=== PATIENT | female | born 2000 | race Caucasian/White ===

== ENCOUNTER 2023-04-14 08:20 | Inpatient (IN) | payer OTHER, SELFPAY ==
--- NOTE | 2023-04-14 | ECG_ITS ---
Test Reason : CLEARANCE Blood Pressure : / mmHG Vent. Rate : 069 BPM Atrial Rate : 069 BPM P-R Int : 140 ms QRS Dur : 076 ms QT Int : 368 ms P-R-T Axes : 054 070 033 degrees QTc Int : 394 ms Normal sinus rhythm with sinus arrhythmia Normal ECG No previous ECGs available Referred By: Zach Cleaning Electronically Signed By:PATO BARNEY MD
[2023-04-14 08:24] VITALS: BP 118/80; PULSE 98; RESP 12; O2SAT 96; BMI 25.4
--- NOTE | 2023-04-14 08:30 | ED.PSYCH ---
HPI - Psych General Chief Complaint: Psychiatric Symptoms Stated Complaint: Mental health eval Time Seen by Provider: 04/14/23 08:30 Source: patient and RN notes reviewed Mode of arrival: ambulatory Limitations: no limitations History of Present Illness HPI Narrative: This is a 23-year-old female, with no known past medical history, presenting to the emergency department with complaints of suicidal ideations. Patient reports that over the last several years her mother has been battling cancer and recently several weeks ago. Patient states that she has had a difficult time with this transition. Patient reports suicidal ideations however does not have a suicidal plan. No auditory or visual hallucinations. Denies alcohol or drug use. She is currently staying with a friend and is safe in these facilities. She has been admitted psychiatrically, last urine medicated. Denies any fevers, chills, chest pain, shortness of breath, headaches, dizziness, nausea vomiting, or diarrhea. No other complaints or concerns at this time. MD complaint: suicidal ideation and feels depressed Onset (ago): week(s) Duration: constant History of same: Yes Relieving factors: none Exacerbating factors: none Context: significant life stressor Associated psychiatric symptoms: depression and suicidal ideation Associated symptoms: denies other symptoms Treatments prior to arrival: none Related Data Home Medications Medication Instructions Recorded Confirmed cariprazine 3 mg capsule (Vraylar) 3 mg PO DAILY 04/14/23 04/14/23 metformin 500 mg PO DAILY 04/14/23 04/14/23 quetiapine 100 mg PO BEDTIME 04/14/23 04/14/23 Allergies Allergy/AdvReac Type Severity Reaction Status Date / Time No Known Allergies Allergy Verified 04/14/23 08:47 Review of Systems Review of Systems: Constitutional: No Weight loss, No Fever, No Chills, No Night Sweats, No Fatigue, No Malaise ENT/Mouth: No Hearing loss, No Ear Pain, No Nasal Congestion, No Sinus Pain, No Hoarseness, No sore throat, No Rhinorrhea, No Swallowing Difficulty Eyes: No Eye Pain, No Swelling, No Redness, No Foreign Body, No Discharge, No Vision Changes Cardiovascular: No Chest Pain, No SOB, No Dyspnea on Exertion, No Orthopnea, No Edema, No Palpitations Respiratory: No Cough, No Sputum, No Wheezing, No Smoke Exposure, No Dyspnea Gastrointestinal: No Nausea, No Vomiting, No Diarrhea, No Constipation, No Abdominal pain, No Hematochezia, No Melena Genitourinary: No irregular bleeding, No Dysuria, No Urinary Frequency, No Hematuria, No Urinary Incontinence/retention, No Urgency, No Flank Pain, No Urinary Flow Changes, No Hesitancy Musculoskeletal: No joint pain, No Myalgias, No Joint Swelling Skin: No Skin Lesions, No rash Neuro: No Weakness, No Numbness, No Paresthesias, No Loss of Consciousness, No Dizziness, No Headache Psych: No Anxiety/Panic, No Depression, +SI, No HI/AH/VH, No Social Issues, Heme/Lymph: No Bruising, No Bleeding,No Lymphadenopathy Endocrine: No Polyuria, No Polydipsia, No Temperature Intolerance Yes all other systems are reviewed and are negative Constitutional: Constitutional: Reports as per [facility] Social History Social History Alcohol intake: never Smoked in Last 30 Days: No Use of substances other than those prescribed or required for medical reasons: No Advance Directives: No Advance Directives Information Provided: Yes Guardian: No Physical Exam Vital Signs: Vital Signs: Last Vital Signs Temp 97.4 F 04/15/23 06:19 Pulse 69 04/15/23 06:19 Resp 15 04/15/23 06:19 BP 106/65 04/15/23 06:19 Pulse Ox 98 04/15/23 06:19 O2 Del Method Room Air 04/15/23 06:19 BMI result Body Mass Index 25.4 Const: General: cooperative, comfortable and no acute distress Orientation/consciousness: patient oriented x3 Limitations: no limitations HEENT: Head: Yes normal to inspection, Yes normocephalic and Yes atraumatic Ears: hearing grossly normal bilaterally General nose exam: Normal external nose present Face and sinus: Yes normal facial exam Mouth: Normal oral and palatal mucosa present, oropharynx normal and moist mucous membranes Throat: Yes posterior oropharynx normal Eyes: General: appearance normal, both eyes and all related structures Eyelids: Yes eyelids normal Conjunctivae: conjunctivae normal Sclerae: sclerae normal Pupils: Equal, round and reactive pupils present EOM: EOMs intact bilaterally Neck: Neck: Yes normal visual inspection, Yes full ROM and Yes no lymphadenopathy Lymphatic: no lymphadenopathy noted Chest: Chest palpation & inspection: normal inspection of the chest Resp: Effort & Inspection: normal respiratory effort and able to speak in complete sentences Auscultation: clear to auscultation bilaterally, no crackles, no rales, no rhonchi and no wheezes Cardio: Rate: regular rate Rhythm: regular rhythm Heart sounds: S1 normal heart sound present and S2 normal heart sound present GI: Inspection: Yes normal to inspection Palpation (GI): Soft to palpation, nontender and no guarding Skin: General skin exam: no rashes or lesions noted Trauma: no lacerations or abrasions Wounds: no wounds Neuro: General: patient oriented x3 and moves all extremities Cranial nerves: Yes Equal, round and reactive pupils present Extrem: General: Yes normal to inspection Right upper extremity: normal to inspection Left upper extremity: normal to inspection Right lower extremity: normal to inspection Left lower extremity: normal to inspection Course Reevaluation(s) Reevaluation #1: Labs reviewed, no leukocytosis H&H is stable, urine specific gravity elevated likely due to mild dehydration, kidney function within normal limits, patient tested positive for opiates, no other drugs. Patient is COVID negative. Patient cleared medically, pending care team consult and dispo. Time: 14:40 Reevaluation #2: Physician observation initiated. Time: 15:45 Reevaluation #3: Patient will be admitted psychiatrically. Time: 15:56 Additional Reevaluation(s): 0655: Physician observation continued The patient has been accepted to the psychiatric service however there is incidents issue and the patient had to remain in the emergency department Behavioral Health Unit. No reported incidents on the patient overnight. Patient will be kept in the emergency department Behavioral Health Unit until appropriate disposition can be determined. 0900: End physician observation Patient has been accepted on to the [facility] psychiatric service. Medications Administered Discontinued Medications Generic Name Dose Route Start Last Admin Trade Name Hunterq PRN Reason Stop Dose Admin Cariprazine 3 mg 04/15/23 09:00 04/15/23 08:49 Cariprazine Hcl 3 Mg Capsule PO Not Given DAILY CHALO Metformin HCl 500 mg 04/15/23 09:00 04/15/23 08:49 Metformin Hcl 500 Mg Tablet PO Not Given DAILY CHALO Quetiapine Fumarate 100 mg 04/14/23 21:00 04/14/23 21:32 Quetiapine Fumarate 100 Mg Tablet PO 100 mg BEDTIME CHALO Administration Medical Decision Making Medical Decision Making MDM Narrative: 23-year-old female presenting to the emergency department for evaluation of suicidal ideations. Recent significant stressor of her mom from cancer. Patient has no suicidal plan. Denies alcohol or drug use. Patient in Behavioral Health pot. Vital signs stable. No Physical aliments. Plan: Labs, UA, COVID, urine drug screen Differential Diagnosis Differential Diagnoses: The differential diagnosis associated with the presentation includes Suicidal ideation, depression, anxiety, substance abuse Admission/Observation Consideration of admission/observation: Escalation of care including admission/observation considered Lab Data MDM Lab Attestation statement: I reviewed the patient's lab results. 04/14/23 09:26 04/14/23 09:26 Labs: Lab Results 04/14/23 04/14/23 04/14/23 Range/Units 08:48 08:48 08:48 WBC (4.8-10.8) X10*3/uL RBC (4.20-5.50) X10*6/uL Hgb (12.0-16.0) g/dl Hct (37.0-47.0) % MCV (80.0-98.0) fL MCH (27.0-33.0) pg MCHC (31.0-35.0) g/dl RDW (11.0-16.0) % Plt Count (160-400) X10*3/uL MPV (9.4-12.3) fL Immature Gran % (Auto) (0.0-0.4) % Neut % (Auto) (45-73) % Lymph % (Auto) (20-40) % [place] % (Auto) (2-11) % Eos % (Auto) (0-4) % Baso % (Auto) (0-2) % Lymph # (Auto) (1.2-4.9) X10*3/uL [place] # (Auto) (0.1-1.2) X10*3/uL Eos # (Auto) (0.0-0.4) X10*3/uL Baso # (Auto) (0.0-0.2) X10*3/uL Abs Immat Gran (auto) (0.00-0.03) X10*3/uL Absolute Neuts (auto) (2.0-8.3) x10*3/uL Absolute Nucleated RBC (0.0-0.012) X10*3/uL Nucleated RBC % (auto) (0.0-0.2) /100WBC Sodium (135-145) mmol/L Potassium (3.3-5.1) mmol/L Chloride (96-108) mmol/L Carbon Dioxide (22-29) mmol/L Anion Gap (12-20) BUN (9-16) mg/dL Creatinine (0.5-1.4) mg/dL Estim Creat Clear Calc Estimated GFR Random Glucose (60-115) mg/dL Calcium (8.4-10.2) mg/dL Urine Color Dark Yellow Urine Appearance Clear Urine pH 5.5 (5.0-9.0) Ur Specific [place] >= 1.030 H (1.005-1.025) Urine Protein Trace (Neg-Trace) mg/dL Urine Glucose (UA) Negative (Negative) mg/dL Urine Ketones Trace (Negative) mg/dL Urine Blood Negative (Negative) Urine Nitrite Negative (Negative) Ur Leukocyte Esterase Negative (Negative) Urine Test NEGATIVE (NEGATIVE) Urine Opiates Screen (Not Detect) Urine Fentanyl Screen (Not Detect) Ur Barbiturates Screen (Not Detect) Ur Phencyclidine Scrn (Not Detect) Ur Amphetamines Screen (Not Detect) U Benzodiazepines Scrn (Not Detect) Urine Cocaine Screen (Not Detect) U Marijuana (THC) Screen (Not Detect) COVID-19 (KAYLEY) Negative (Negative) COVID-19 Clin Com See Note 04/14/23 04/14/23 04/14/23 Range/Units 08:48 09:26 09:26 WBC 5.7 (4.8-10.8) X10*3/uL RBC 5.11 (4.20-5.50) X10*6/uL Hgb 14.4 (12.0-16.0) g/dl Hct 45.5 (37.0-47.0) % MCV 89.0 (80.0-98.0) fL MCH 28.2 (27.0-33.0) pg MCHC 31.6 (31.0-35.0) g/dl RDW 11.8 (11.0-16.0) % Plt Count 305 (160-400) X10*3/uL MPV 8.8 L (9.4-12.3) fL Immature Gran % (Auto) 0.2 (0.0-0.4) % Neut % (Auto) 48.7 (45-73) % Lymph % (Auto) 38.0 (20-40) % [place] % (Auto) 9.8 (2-11) % Eos % (Auto) 2.8 (0-4) % Baso % (Auto) 0.5 (0-2) % Lymph # (Auto) 2.2 (1.2-4.9) X10*3/uL [place] # (Auto) 0.6 (0.1-1.2) X10*3/uL Eos # (Auto) 0.2 (0.0-0.4) X10*3/uL Baso # (Auto) 0.0 (0.0-0.2) X10*3/uL Abs Immat Gran (auto) 0.01 (0.00-0.03) X10*3/uL Absolute Neuts (auto) 2.8 (2.0-8.3) x10*3/uL Absolute Nucleated RBC 0.000 (0.0-0.012) X10*3/uL Nucleated RBC % (auto) 0.0 (0.0-0.2) /100WBC Sodium 142 (135-145) mmol/L Potassium 4.3 (3.3-5.1) mmol/L Chloride 106 (96-108) mmol/L Carbon Dioxide 27 (22-29) mmol/L Anion Gap 13 (12-20) BUN 12 (9-16) mg/dL Creatinine 0.81 (0.5-1.4) mg/dL Estim Creat Clear Calc 86.7 Estimated GFR > 60 Random Glucose 104 (60-115) mg/dL Calcium 10.0 (8.4-10.2) mg/dL Urine Color Urine Appearance Urine pH (5.0-9.0) Ur Specific [place] (1.005-1.025) Urine Protein (Neg-Trace) mg/dL Urine Glucose (UA) (Negative) mg/dL Urine Ketones (Negative) mg/dL Urine Blood (Negative) Urine Nitrite (Negative) Ur Leukocyte Esterase (Negative) Urine Test (NEGATIVE) Urine Opiates Screen POSITIVE H (Not Detect) Urine Fentanyl Screen Not Detected (Not Detect) Ur Barbiturates Screen Not Detected (Not Detect) Ur Phencyclidine Scrn Not Detected (Not Detect) Ur Amphetamines Screen Not Detected (Not Detect) U Benzodiazepines Scrn Not Detected (Not Detect) Urine Cocaine Screen Not Detected (Not Detect) U Marijuana (THC) Screen Not Detected (Not Detect) COVID-19 (K[facility]LEY) (Negative) COVID-19 [facility] 04/14/23 Range/Units 16:30 WBC (4.8-10.8) X10*3/uL RBC (4.20-5.50) X10*6/uL Hgb (12.0-16.0) g/dl Hct (37.0-47.0) % MCV (80.0-98.0) fL MCH (27.0-33.0) pg MCHC (31.0-35.0) g/dl RDW (11.0-16.0) % Plt Count (160-400) X10*3/uL MPV (9.4-12.3) fL Immature Gran % (Auto) (0.0-0.4) % Neut % (Auto) (45-73) % Lymph % (Auto) (20-40) % [place] % (Auto) (2-11) % Eos % (Auto) (0-4) % Baso % (Auto) (0-2) % Lymph # (Auto) (1.2-4.9) X10*3/uL [place] # (Auto) (0.1-1.2) X10*3/uL Eos # (Auto) (0.0-0.4) X10*3/uL Baso # (Auto) (0.0-0.2) X10*3/uL Abs Immat Gran (auto) (0.00-0.03) X10*3/uL Absolute Neuts (auto) (2.0-8.3) x10*3/uL Absolute Nucleated RBC (0.0-0.012) X10*3/uL Nucleated RBC % (auto) (0.0-0.2) /100WBC Sodium (135-145) mmol/L Potassium (3.3-5.1) mmol/L Chloride (96-108) mmol/L Carbon Dioxide (22-29) mmol/L Anion Gap (12-20) BUN (9-16) mg/dL Creatinine (0.5-1.4) mg/dL Estim Creat Clear Calc Estimated GFR Random Glucose (60-115) mg/dL Calcium (8.4-10.2) mg/dL Urine Color Urine Appearance Urine pH (5.0-9.0) Ur Specific [place] (1.005-1.025) Urine Protein (Neg-Trace) mg/dL Urine Glucose (UA) (Negative) mg/dL Urine Ketones (Negative) mg/dL Urine Blood (Negative) Urine Nitrite (Negative) Ur Leukocyte Esterase (Negative) Urine Test (NEGATIVE) Urine Opiates Screen Not Detected (Not Detect) Urine Fentanyl Screen Not Detected (Not Detect) Ur Barbiturates Screen Not Detected (Not Detect) Ur Phencyclidine Scrn Not Detected (Not Detect) Ur Amphetamines Screen Not Detected (Not Detect) U Benzodiazepines Scrn Not Detected (Not Detect) Urine Cocaine Screen Not Detected (Not Detect) U Marijuana (THC) Screen Not Detected (Not Detect) COVID-19 ([facility]LEY) (Negative) COVID-19 Clin Com Radiology Impression Discussion of test interpretation with radiology: I have reviewed the radiologist's reading. External Record Review External record reviewed: Inpatient record, Office record, Outpatient record, Prior outpatient labs, Prior outpatient radiology, Primary care record and Outside ED record Discharge Plan Discharge Patient Disposition: Admitted As Inpatient Prescriptions: No Action Vraylar 3 mg Capsule 3 mg PO DAILY metformin 500 mg PO DAILY quetiapine 100 mg PO BEDTIME Interventions: Velma-Suicide Risk Severity Scale Last Done: 04/15/23 06:17
[2023-04-14 09:46] LABS: Anion Gap 13 (12-20); Blood Urea Nitrogen 12 mg/dL (9-16); Carbon Dioxide 27 mmol/L (22-29); Chloride 106 mmol/L (96-108); Creatinine Clr Calc Pharmacy 86.7; Estimated Glomerular Filt Rate > 60; Glucose Random 104 mg/dL (60-115); Potassium 4.3 mmol/L (3.3-5.1); Sodium 142 mmol/L (135-145)
--- NOTE | 2023-04-14 18:08 | MHC.CARE ---
Call to patient?s listed insurance co., [employer] [phone] they are unable to accept clinical before determined if the service is a covered benefit. Call to [facility] [phone], closed for the day and automated service to check eligibility was not working. Patient registration attempted to check eligibility, this appears to be a dental plan.
[2023-04-14 20:58] VITALS: BP 117/77; PULSE 80; RESP 16; TEMP 36.6; O2SAT 99
[2023-04-14] MEDS: QUEtiapine Fumarate 100 MG TABLET PO (21:32)
[2023-04-15 06:19] VITALS: BP 106/65; PULSE 69; RESP 15; TEMP 36.3; O2SAT 98
--- NOTE | 2023-04-15 06:20 | PC.NURSE ---
Patient slept through the night, no distress observed/reported, behavior non concerning, mood depressed, affect congruent to mood, med rec completed/pending provider's approval, disposition per care team is section 12 inpatient bed search, patient was initially accepted to [facility] but later admission was put on hold due to insurance issue per care team, appetite poor, VSS, will continue to monitor.
--- NOTE | 2023-04-15 08:50 | PC.NURSE ---
This RN attempted to medicate PT with ordered 0900 meds; Pt stated that she no longer takes Metformin/Vraylar. Documented per MAR
[2023-04-15 09:20] VITALS: BP 109/77; PULSE 103; O2SAT 97
[2023-04-15] MEDS: hydrOXYzine HCL 25 MG TABLET PO (12:39)
--- NOTE | 2023-04-15 14:02 | PC.ADMIT ---
Jose is a 23-year-old female [place] [facility] [place] [facility] [place] a CV for treatment of unspecified depressive disorder and generalized anxiety disorder. Tox screen positive for opiates. Pt's mother recently after battling cancer and she's had a difficult time with this transition. Pt reports struggling with worsening suicidal ideation and difficulty functioning over the past few weeks. Pt presents as guarded and flat but is pleasant and cooperative. Pt reports having elevated anxiety and racing thoughts. Pt endorses vague SI but no plan, denies HI/AH/VH but will reach out to staff if thoughts occur.
--- NOTE | 2023-04-15 14:40 | P.HPPS_ITS ---
HPI Date of Service: 04/15/23 Chief Complaint: SI HPI Narrative: per CARE team patriciakeyona cross presented to [facility] [place] ED with friend, c/o SI and seeking admission. she reported that her mother had been ill with cancer for the past several years and about 3 weeks ago. since her mother's passing, she has been having daily SI; she struggles with chronic SI, but recently it has been more frequent and intense. she reports hopelessness, insomnia, anorexia with 4 lb weight loss, poor attention to ADLs. per collateral from pt's friend alon, pt has been struggling the past 6 years since her mother was diagnosed with cancer but has become increasingly depressed and suicidal since her mother's several weeks ago. on interview with psych MD on unit, pt's narrative is consistent with the information above. she reports mst of her med trials happened when she was in elementary school. she cannot recal the meds or doses, but it is her perception that meds have never been terribly helpful for her. she endorses insomnia, anergia, amotivation, hopelessness, rumination, poor concentration, PMR, and SI. she reports her energy level is normal. she reports as her target symptoms SI, anxiety, and rumination/depression, in that order. R/B of medications discussed, with focus on SSRI, and pt agrees to trial. MD contacted pharmacy where pt gets her meds in [place] and left message for her outpt med prescriber for collateral in understanding medication and diagnostic Hx. Past Psychiatric History: hosps: 1 prior, october of 2021 in [place], [place]; PHP after SA: denies SIB: denies outpt: therapy - weekly with same therapist for the past 3+ years prescriber - MARTINA molina [phone], for longer than with therapist reports h/o ADHD and depression diagnoses from childhood. describes most of her med trials as having happened when she was around 7 yo. per collateral from [place], [place], pt has been prescribed the following medications in the past 2 years: vraylar 3 mg daily, seroquel 100-150 mg QHS, hydroxyzine PRN anxiety, topiramate 50 BID (late 2020), and lithium (09/26). Medical Evaluation Reviewed: Yes [facility] Family History: brother - OCD/anxiety/depression sister - ODD Social History: single, never , no children. living with a friend of her family's presently, having moved out of her family home after the of her mother. she feels her father has made it abundantly clear he does not want anyone there with him, so she and her sister moved out. entering senior year in [employer] in [place], [place]. not employed. Substance History: pt denies the use of tobacco, alcohol, cannabis, or any other substances of abuse or recreational drugs. Trauma History: denies Diagnostics Vital Signs (24Hr): Vital Signs - 24 hr 04/14/23 20:58 04/15/23 06:19 Temperature 97.9 F 97.4 F Pulse Rate 80 69 Respiratory Rate 16 15 Blood Pressure 117/77 106/65 Pulse Oximetry 99 98 Oxygen Delivery Method Room Air Room Air BMI result Body Mass Index 25.4 Labs 04/14/23 09:26 04/14/23 09:26 Labs: Laboratory Results - last 48 hr 04/14/23 04/14/23 04/14/23 08:48 08:48 08:48 WBC RBC Hgb Hct MCV MCH MCHC RDW Plt Count MPV Immature Gran % (Auto) Neut % (Auto) Lymph % (Auto) [place] % (Auto) Eos % (Auto) Baso % (Auto) Lymph # (Auto) [place] # (Auto) Eos # (Auto) Baso # (Auto) Abs Immat Gran (auto) Absolute Neuts (auto) Absolute Nucleated RBC Nucleated RBC % (auto) Sodium Potassium Chloride Carbon Dioxide Anion Gap BUN Creatinine Estim Creat Clear Calc Estimated GFR Random Glucose Calcium Urine Color Dark Yellow Urine Appearance Clear Urine pH 5.5 Ur Specific [place] >= 1.030 H Urine Protein Trace Urine Glucose (UA) Negative Urine Ketones Trace Urine Blood Negative Urine Nitrite Negative Ur Leukocyte Esterase Negative Urine Test NEGATIVE Urine Opiates Screen Urine Fentanyl Screen Ur Barbiturates Screen Ur Phencyclidine Scrn Ur Amphetamines Screen U Benzodiazepines Scrn Urine Cocaine Screen U Marijuana (THC) Screen COVID-19 (KAYLEY) Negative COVID-19 Clin Com See Note 04/14/23 04/14/23 04/14/23 08:48 09:26 09:26 WBC 5.7 RBC 5.11 Hgb 14.4 Hct 45.5 MCV 89.0 MCH 28.2 MCHC 31.6 RDW 11.8 Plt Count 305 MPV 8.8 L Immature Gran % (Auto) 0.2 Neut % (Auto) 48.7 Lymph % (Auto) 38.0 [place] % (Auto) 9.8 Eos % (Auto) 2.8 Baso % (Auto) 0.5 Lymph # (Auto) 2.2 [place] # (Auto) 0.6 Eos # (Auto) 0.2 Baso # (Auto) 0.0 Abs Immat Gran (auto) 0.01 Absolute Neuts (auto) 2.8 Absolute Nucleated RBC 0.000 Nucleated RBC % (auto) 0.0 Sodium 142 Potassium 4.3 Chloride 106 Carbon Dioxide 27 Anion Gap 13 BUN 12 Creatinine 0.81 Estim Creat Clear Calc 86.7 Estimated GFR > 60 Random Glucose 104 Calcium 10.0 Urine Color Urine Appearance Urine pH Ur Specific [place] Urine Protein Urine Glucose (UA) Urine Ketones Urine Blood Urine Nitrite Ur Leukocyte Esterase Urine Test Urine Opiates Screen POSITIVE H Urine Fentanyl Screen Not Detected Ur Barbiturates Screen Not Detected Ur Phencyclidine Scrn Not Detected Ur Amphetamines Screen Not Detected U Benzodiazepines Scrn Not Detected Urine Cocaine Screen Not Detected U Marijuana (THC) Screen Not Detected COVID-19 ([facility]LEY) COVID-[employer] 04/14/23 16:30 WBC RBC Hgb Hct MCV MCH MCHC RDW Plt Count MPV Immature Gran % (Auto) Neut % (Auto) Lymph % (Auto) [place] % (Auto) Eos % (Auto) Baso % (Auto) Lymph # (Auto) [place] # (Auto) Eos # (Auto) Baso # (Auto) Abs Immat Gran (auto) Absolute Neuts (auto) Absolute Nucleated RBC Nucleated RBC % (auto) Sodium Potassium Chloride Carbon Dioxide Anion Gap BUN Creatinine Estim Creat Clear Calc Estimated GFR Random Glucose Calcium Urine Color Urine Appearance Urine pH Ur Specific [place] Urine Protein Urine Glucose (UA) Urine Ketones Urine Blood Urine Nitrite Ur Leukocyte Esterase Urine Test Urine Opiates Screen Not Detected Urine Fentanyl Screen Not Detected Ur Barbiturates Screen Not Detected Ur Phencyclidine Scrn Not Detected Ur Amphetamines Screen Not Detected U Benzodiazepines Scrn Not Detected Urine Cocaine Screen Not Detected U Marijuana (THC) Screen Not Detected COVID-19 ([facility]LEY) COVID-19 [facility] Meds/Allergies Meds Home Medications Medication Instructions Recorded Confirmed Type cariprazine 3 mg capsule (Vraylar) 3 mg PO DAILY 04/14/23 04/14/23 History metformin 500 mg PO DAILY 04/14/23 04/14/23 History quetiapine 100 mg PO BEDTIME 04/14/23 04/14/23 History Allergies Allergies Allergy/AdvReac Type Severity Reaction Status Date / Time No Known Allergies Allergy Verified 04/14/23 08:47 Mental Status Exam Mental Status Exam Narrative: calm, cooperative. somewhat disheveled, dressed in hospital attire. cooperative. speech nml amount, loudness. perhaps slightly slowed. latency often increased, as if pt were having some difficulty generating answers to questions. she offered that she is having trouble thinking. affect constricted, normo-intense, non-labile. mood anxious. SI comes and goes. denies HI/AVH. Assessment & Plan Assessment & Plan (1) Major depressive disorder, recurrent episode: Status: Acute Code(s): F33.9 - Major depressive disorder, recurrent, unspecified Plan collateral obtained from [facility], [place] re meds Hx over past 2 years. call placed to jesse MACK for meds Hx and collateral. start zoloft 50 mg for now for depression and anxiety. Patient educated on: diagnosis and medication risk/benefits Reason for continued inpatient stay Substantial Risk for: harm to self and inability to function Statement Statement: I have reviewed the history and physical and performed a pertinent examination on my patient. No changes have occurred unless specified. If the History and Physical was not performed prior to admission, the Hospitalist's service will be consulted for completing the admission physical. Time Spent With Patient Time: Total time managing care of this patient today __75__ minutes.
[2023-04-15 17:33] VITALS: BMI 24.3
[2023-04-15] MEDS: Acetaminophen 325 MG TABLET 650 MG PO (18:27)
[2023-04-15 21:00] VITALS: BP 107/69; PULSE 78; RESP 16; TEMP 36.4; O2SAT 100
[2023-04-15] MEDS: traZODone HCL 50 MG TABLET PO (21:26)
[2023-04-16 08:53] LABS: Estimated Average Glucose 88 mg/dL; Hemoglobin A1c % 4.7 %
[2023-04-16 09:03] LABS: Alanine Aminotransferase 21 U/L (0-31); Albumin Level 3.8 g/dL (3.5-5.0); Alkaline Phosphatase 59 U/L (39-117); Anion Gap 12 (12-20); Aspartate Amino Transferase 19 U/L (5-31); Bilirubin Total 0.3 mg/dL (0.0-1.0); Blood Urea Nitrogen 11 mg/dL (9-16); Calcium 9.7 mg/dL (8.4-10.2); Carbon Dioxide 25 mmol/L (22-29); Chloride 106 mmol/L (96-108); Cholesterol 201 mg/dL; Creatinine Clr Calc Pharmacy 86.1; Estimated Glomerular Filt Rate > 60; Glucose Fasting 95 mg/dL (60-99); HDL Cholesterol 51 mg/dL; LDL Cholesterol Calculated 130 mg/dl; Potassium 4.1 mmol/L (3.3-5.1); Sodium 139 mmol/L (135-145); Total Protein 6.2 g/dL (6.5-8.0); Triglycerides 103 mg/dL
[2023-04-16 09:18] LABS: Free T4 (Free Thyroxine) 1.29 ng/dL (0.71-1.85)
[2023-04-16 09:27] LABS: Vitamin B12 681 pg/mL (200-900)
[2023-04-16 10:00] VITALS: BP 125/75; PULSE 110; TEMP 36.6; O2SAT 97
[2023-04-16] MEDS: Sertraline HCL 50 MG TABLET PO (10:20)
--- NOTE | 2023-04-16 15:48 | HO.PSYCHPN ---
Subjective Subjective Date of Service: 04/16/23 Reason For Visit: SI Interim History: calm, cooperative. continues with mental slowing and apparent executive impairment. did not have seroquel Rx'ed last night, it was added back today for tonight. reports she had a hand tremor from the lithium and it did not help her in any case. per staff, attending groups. poor sleep overnight 2/2 snoring roommate. Mental Status Exam Mental Status Exam Narrative: calm, cooperative. somewhat disheveled, dressed in hospital attire. cooperative. speech nml amount, loudness. perhaps slightly slowed. latency often increased, as if pt were having some difficulty generating answers to questions. she offered that she is having trouble thinking. affect constricted, normo-intense, non-labile. mood no change. no SI/SIBI/HI/AVH expressed. Diagnostics Vital Signs (24Hr): Vital Signs - 24 hr 04/15/23 21:00 04/16/23 10:00 Temperature 97.6 F 97.8 F Pulse Rate 78 110 H Respiratory Rate 16 Blood Pressure 107/69 125/75 Pulse Oximetry 100 97 Oxygen Delivery Method Room Air Room Air BMI result Body Mass Index 24.3 Labs 04/14/23 09:26 04/16/23 08:34 Labs: Laboratory Results - last 48 hr 04/14/23 04/16/23 04/16/23 16:30 08:34 08:34 Sodium 139 Potassium 4.1 Chloride 106 Carbon Dioxide 25 Anion Gap 12 BUN 11 Creatinine 0.80 Estim Creat Clear Calc 86.1 Estimated GFR > 60 Fasting Glucose 95 Estimat Average Glucose 88 Hemoglobin A1c % 4.7 Calcium 9.7 Total Bilirubin 0.3 AST 19 ALT 21 Alkaline Phosphatase 59 Total Protein 6.2 L Albumin 3.8 Triglycerides 103 Cholesterol 201 LDL Cholesterol, Calc 130 HDL Cholesterol 51 Vitamin B12 Folate TSH 0.70 Free T4 1.29 Urine Opiates Screen Not Detected Urine Fentanyl Screen Not Detected Ur Barbiturates Screen Not Detected Ur Phencyclidine Scrn Not Detected Ur Amphetamines Screen Not Detected U Benzodiazepines Scrn Not Detected Urine Cocaine Screen Not Detected U Marijuana (THC) Screen Not Detected 04/16/23 08:34 Sodium Potassium Chloride Carbon Dioxide Anion Gap BUN Creatinine Estim Creat Clear Calc Estimated GFR Fasting Glucose Estimat Average Glucose Hemoglobin A1c % Calcium Total Bilirubin AST ALT Alkaline Phosphatase Total Protein Albumin Triglycerides Cholesterol LDL Cholesterol, Calc HDL Cholesterol Vitamin B12 681 Folate 7.0 TSH Free T4 Urine Opiates Screen Urine Fentanyl Screen Ur Barbiturates Screen Ur Phencyclidine Scrn Ur Amphetamines Screen U Benzodiazepines Scrn Urine Cocaine Screen U Marijuana (THC) Screen Medications Medications Current Medications Acetaminophen (Acetaminophen 325 Mg Tablet) 650 mg PO Q6H PRN PRN Reason: Headache/Pain Mild Scale (1-3) Last Admin: 04/15/23 18:27 Dose: 650 mg Al Hydroxide/Mg Hydroxide (Magnesium Hydrox/Alum Hydrox 30 Ml Oral.Susp) 30 ml PO Q6H PRN PRN Reason: Heartburn/Nausea Hydroxyzine HCl (Hydroxyzine Hcl 25 Mg Tablet) 25 mg PO Q6H PRN PRN Reason: Anxiety Last Admin: 04/15/23 12:39 Dose: 25 mg Magnesium Hydroxide (Milk Of Magnesia 30 Ml Oral.Susp) 30 ml PO DAILY PRN PRN Reason: Constipation Quetiapine Fumarate (Quetiapine Fumarate 100 Mg Tablet) 100 mg PO BEDTIME CHALO Quetiapine Fumarate (Quetiapine Fumarate 50 Mg Tablet) 50 mg PO BEDTIME PRN PRN Reason: Insomnia Sertraline HCl (Sertraline Hcl 50 Mg Tablet) 50 mg PO DAILY CHALO Last Admin: 04/16/23 10:20 Dose: 50 mg Allergies Allergies Allergy/AdvReac Type Severity Reaction Status Date / Time No Known Allergies Allergy Verified 04/14/23 08:47 Assessment & Plan Assessment & Plan (1) Major depressive disorder, recurrent episode: Status: Acute Code(s): F33.9 - Major depressive disorder, recurrent, unspecified Plan 04/15: collateral obtained from [place], [place] re meds Hx over past 2 years. call placed to jeses MACK for meds Hx and collateral. start zoloft 50 mg for now for depression and anxiety. 04/16: reinstate seroquel at [facility]. awaiting collateral from jesse. continue current mgmt. no change in presentation. Reason for continued inpatient stay Substantial Risk for: harm to self, inability to function and rapid decompensation Time Spent With Patient Time: Total time managing care of this patient today __25__ minutes.
[2023-04-16 19:52] VITALS: BP 128/71; PULSE 66; RESP 18; TEMP 36.3; O2SAT 98
[2023-04-16] MEDS: QUEtiapine Fumarate 100 MG TABLET PO (21:02)
[2023-04-16] MEDS: hydrOXYzine HCL 25 MG TABLET PO (21:10)
[2023-04-17 07:00] VITALS: BMI 24.4
[2023-04-17 09:00] VITALS: BP 112/75; PULSE 75; RESP 16; TEMP 36.7; O2SAT 16
[2023-04-17] MEDS: Sertraline HCL 50 MG TABLET PO (09:04)
--- NOTE | 2023-04-17 12:48 | P.PNPSI_ITS ---
Subjective Subjective Date of Service: 04/17/23 Reason For Visit: SI Interim History: pt reports racing thoughts making sleep difficult. racing thoughts present prior to admission and remain unchanged. not interested in PHP. passive SI - upon awakening, thinks, why am i still here? no plan or intent. educated re wellbutrin augmentation and DBT. per staff, poor sleep. vomited x 1 yesterday morning, which she attributed to anxiety. poor sleep 2/2 racing thoughts. tending to ADLs. taking meds and meals. denied SI/HI to staff. Mental Status Exam Mental Status Exam Narrative: calm, cooperative. adequately dressed and groomed, in street clothes. cooperative. speech nml amount, loudness. perhaps slightly slowed. latency slightly increased. affect constricted, normo-intense, non-labile. mood no change. passive SI. no SIBI/HI/AVH expressed. Diagnostics Vital Signs (24Hr): Vital Signs - 24 hr 04/16/23 19:52 04/17/23 09:00 Temperature 97.4 F 98.1 F Pulse Rate 66 75 Respiratory Rate 18 16 Blood Pressure 128/71 112/75 Pulse Oximetry 98 16 L Oxygen Delivery Method Room Air Room Air BMI result Body Mass Index 24.4 Labs 04/14/23 09:26 04/16/23 08:34 Labs: Laboratory Results - last 48 hr 04/16/23 04/16/23 04/16/23 08:34 08:34 08:34 Sodium 139 Potassium 4.1 Chloride 106 Carbon Dioxide 25 Anion Gap 12 BUN 11 Creatinine 0.80 Estim Creat Clear Calc 86.1 Estimated GFR > 60 Fasting Glucose 95 Estimat Average Glucose 88 Hemoglobin A1c % 4.7 Calcium 9.7 Total Bilirubin 0.3 AST 19 ALT 21 Alkaline Phosphatase 59 Total Protein 6.2 L Albumin 3.8 Triglycerides 103 Cholesterol 201 LDL Cholesterol, Calc 130 HDL Cholesterol 51 Vitamin B12 681 Folate 7.0 TSH 0.70 Free T4 1.29 Medications Medications Current Medications Acetaminophen (Acetaminophen 325 Mg Tablet) 650 mg PO Q6H PRN PRN Reason: Headache/Pain Mild Scale (1-3) Last Admin: 04/15/23 18:27 Dose: 650 mg Al Hydroxide/Mg Hydroxide (Magnesium Hydrox/Alum Hydrox 30 Ml Oral.Susp) 30 ml PO Q6H PRN PRN Reason: Heartburn/Nausea Hydroxyzine HCl (Hydroxyzine Hcl 25 Mg Tablet) 25 mg PO Q6H PRN PRN Reason: Anxiety Last Admin: 04/16/23 21:10 Dose: 25 mg Magnesium Hydroxide (Milk Of Magnesia 30 Ml Oral.Susp) 30 ml PO DAILY PRN PRN Reason: Constipation Quetiapine Fumarate (Quetiapine Fumarate 100 Mg Tablet) 100 mg PO BEDTIME CHALO Last Admin: 04/16/23 21:02 Dose: 100 mg Quetiapine Fumarate (Quetiapine Fumarate 50 Mg Tablet) 50 mg PO BEDTIME PRN PRN Reason: Insomnia Sertraline HCl (Sertraline Hcl 50 Mg Tablet) 50 mg PO DAILY CHALO Last Admin: 04/17/23 09:04 Dose: 50 mg Allergies Allergies Allergy/AdvReac Type Severity Reaction Status Date / Time No Known Allergies Allergy Verified 04/14/23 08:47 Assessment & Plan Assessment & Plan (1) Major depressive disorder, recurrent episode: Status: Acute Code(s): F33.9 - Major depressive disorder, recurrent, unspecified Plan 04/15: collateral obtained from [place], [place] re meds Hx over past 2 years. call placed to jesse MACK for meds Hx and collateral. start zoloft 50 mg for now for depression and anxiety. 04/16: reinstate seroquel at [facility]. awaiting collateral from jesse. continue current mgmt. no change in presentation. 04/17: collateral collected from outpt prescriber jesse. he denies bipolar diagnosis, reports pt identifies as BPD. jesse also reports hypothyroidism and hypercortisolism. believes she has done well on vraylar 1.5-3 mg daily over the past year or two. pt to consider wellbutrin for augmentation. will also discuss outpt prescriber's support for continued vraylar with pt tomorrow. Reason for continued inpatient stay Substantial Risk for: harm to self, inability to function and rapid decompensation Time Spent With Patient Time: Total time managing care of this patient today __35__ minutes.
[2023-04-17 20:25] VITALS: BP 117/78; PULSE 78; RESP 16; TEMP 36.6; O2SAT 98
[2023-04-17] MEDS: hydrOXYzine HCL 25 MG TABLET PO (20:35)
[2023-04-17] MEDS: QUEtiapine Fumarate 100 MG TABLET PO (20:35)
[2023-04-18 06:00] VITALS: BP 110/68; PULSE 94; RESP 16; TEMP 36.6; O2SAT 98
[2023-04-18] MEDS: Sertraline HCL 50 MG TABLET PO (10:14)
--- NOTE | 2023-04-18 11:33 | HO.PSYCHPN ---
Subjective Subjective Date of Service: 04/18/23 Reason For Visit: SI Interim History: review conversation MD had with outpt prescriber Jesse yesterday afternoon. discuss 3 options of wellbutrin, no changes, or vraylar. agree restarting vraylar might be best option, restart today. states her mood and thoughts have not changed since admission. did sleep better last night since room move. Mental Status Exam Mental Status Exam Narrative: calm, cooperative. adequately dressed and groomed, in street clothes. cooperative. speech nml amount, decr loudness. perhaps slightly slowed. latency slightly increased. affect constricted, normo-intense, non-labile. mood no change. passive SI. no SIBI/HI/AVH expressed. Diagnostics Vital Signs (24Hr): Vital Signs - 24 hr 04/17/23 20:25 04/18/23 06:00 Temperature 97.8 F 97.8 F Pulse Rate 78 94 Respiratory Rate 16 16 Blood Pressure 117/78 110/68 Pulse Oximetry 98 98 Oxygen Delivery Method Room Air Room Air BMI result Body Mass Index 24.4 Labs 04/14/23 09:26 04/16/23 08:34 Medications Medications Current Medications Acetaminophen (Acetaminophen 325 Mg Tablet) 650 mg PO Q6H PRN PRN Reason: Headache/Pain Mild Scale (1-3) Last Admin: 04/15/23 18:27 Dose: 650 mg Al Hydroxide/Mg Hydroxide (Magnesium Hydrox/Alum Hydrox 30 Ml Oral.Susp) 30 ml PO Q6H PRN PRN Reason: Heartburn/Nausea Cariprazine (Cariprazine Hcl 1.5 Mg Capsule) 1.5 mg PO DAILY [facility] Hydroxyzine HCl (Hydroxyzine Hcl 25 Mg Tablet) 25 mg PO Q6H PRN PRN Reason: Anxiety Last Admin: 04/17/23 20:35 Dose: 25 mg Magnesium Hydroxide (Milk Of Magnesia 30 Ml Oral.Susp) 30 ml PO DAILY PRN PRN Reason: Constipation Quetiapine Fumarate (Quetiapine Fumarate 100 Mg Tablet) 100 mg PO BEDTIME [facility] Last Admin: 04/17/23 20:35 Dose: 100 mg Quetiapine Fumarate (Quetiapine Fumarate 50 Mg Tablet) 50 mg PO BEDTIME PRN PRN Reason: Insomnia Sertraline HCl (Sertraline Hcl 50 Mg Tablet) 50 mg PO DAILY [facility] Last Admin: 04/18/23 10:14 Dose: 50 mg Allergies Allergies Allergy/AdvReac Type Severity Reaction Status Date / Time No Known Allergies Allergy Verified 04/14/23 08:47 Assessment & Plan Assessment & Plan (1) Major depressive disorder, recurrent episode: Status: Acute Code(s): F33.9 - Major depressive disorder, recurrent, unspecified Plan 04/15: collateral obtained from [facility], [place] re meds Hx over past 2 years. call placed to jesse FRANCON for meds Hx and collateral. start zoloft 50 mg for now for depression and anxiety. 04/16: reinstate seroquel at [facility]. awaiting collateral from jesse. continue current mgmt. no change in presentation. 04/17: collateral collected from outpt prescriber jsese. he denies bipolar diagnosis, reports pt identifies as BPD. jesse also reports hypothyroidism and hypercortisolism. believes she has done well on vraylar 1.5-3 mg daily over the past year or two. pt to consider wellbutrin for augmentation. will also discuss outpt prescriber's support for continued vraylar with pt tomorrow. 04/18: convo with jesse reviewed with pt, decision made to restart yraylar at 1.5 mg daily. no change in pt's symptoms. otherwise continue prior mgmt. Reason for continued inpatient stay Substantial Risk for: harm to self, inability to function and rapid decompensation Time Spent With Patient Time: Total time managing care of this patient today __25__ minutes.
[2023-04-18] MEDS: Cariprazine HCl 1.5 MG CAPSULE PO (12:15)
[2023-04-18 20:05] VITALS: BP 110/70; PULSE 81; RESP 16; TEMP 36.6; O2SAT 98
[2023-04-18] MEDS: QUEtiapine Fumarate 100 MG TABLET PO (20:47)
[2023-04-19 08:20] VITALS: BP 109/60; PULSE 91; RESP 18; TEMP 36.7; O2SAT 98
[2023-04-19] MEDS: Sertraline HCL 50 MG TABLET PO (08:34)
[2023-04-19] MEDS: Cariprazine HCl 1.5 MG CAPSULE PO (08:34)
--- NOTE | 2023-04-19 11:58 | HO.PSYCHPN ---
Subjective Subjective Date of Service: 04/19/23 Reason For Visit: SI Subjective Notes: Conditional Voluntary Medical Problems Affecting Mental Status: No Interim History: Remains depressed with low energy and staying in bed. Reports sleep disturbance due to worrying. Appetite is decreased but states she is forcing herself to sleep. Discouraged, feeling that nothing will help since she's been on so many meds in the past and had therapy. Medication Compliance: Yes Side effects from medications: No Attending Groups: Yes Review of Systems Acute medical concerns: No Medical Review of Systems: unchanged Mental Status Exam Mental Status Exam Patient Appearance: Unkempt Patient Orientation: Person, Place, Time and Situation Level of Consciousness: Awake Patient Behavior: Fatigued Mood Description: Depressed Affect Description: Depressed Patient Cognition Impaired: No Ability to Follow Directions: Excellent Speech Pattern: Clear and Coherent Memory Description: Intact Hallucinations: None Delusions: Not Present Thought Process: Linear Thought Content: positive for Suicidal Ideation (no current intent or plan) Depressive Symptoms: Insomnia, Changes in Appetite, Loss of Int. in Activity, Feelings of Guilt and Thoughts of /Suicide Judgement: Fair Diagnostics Vital Signs (24Hr): Vital Signs - 24 hr 04/18/23 20:05 04/19/23 08:20 Temperature 97.9 F 98.1 F Pulse Rate 81 91 Respiratory Rate 16 18 Blood Pressure 110/70 109/60 Pulse Oximetry 98 98 Oxygen Delivery Method Room Air Room Air BMI result Body Mass Index 24.4 Labs 04/14/23 09:26 04/16/23 08:34 Medications Medications Current Medications Acetaminophen (Acetaminophen 325 Mg Tablet) 650 mg PO Q6H PRN PRN Reason: Headache/Pain Mild Scale (1-3) Last Admin: 04/15/23 18:27 Dose: 650 mg Al Hydroxide/Mg Hydroxide (Magnesium Hydrox/Alum Hydrox 30 Ml Oral.Susp) 30 ml PO Q6H PRN PRN Reason: Heartburn/Nausea Cariprazine (Cariprazine Hcl 1.5 Mg Capsule) 1.5 mg PO DAILY CHALO Last Admin: 04/19/23 08:34 Dose: 1.5 mg Hydroxyzine HCl (Hydroxyzine Hcl 25 Mg Tablet) 25 mg PO Q6H PRN PRN Reason: Anxiety Last Admin: 04/17/23 20:35 Dose: 25 mg Magnesium Hydroxide (Milk Of Magnesia 30 Ml Oral.Susp) 30 ml PO DAILY PRN PRN Reason: Constipation Quetiapine Fumarate (Quetiapine Fumarate 100 Mg Tablet) 100 mg PO BEDTIME CHALO Last Admin: 04/18/23 20:47 Dose: 100 mg Quetiapine Fumarate (Quetiapine Fumarate 50 Mg Tablet) 50 mg PO BEDTIME PRN PRN Reason: Insomnia Sertraline HCl (Sertraline Hcl 50 Mg Tablet) 50 mg PO DAILY [facility] Last Admin: 04/19/23 08:34 Dose: 50 mg Allergies Allergies Allergy/AdvReac Type Severity Reaction Status Date / Time No Known Allergies Allergy Verified 04/14/23 08:47 Assessment & Plan Assessment & Plan (1) Major depressive disorder, recurrent episode: Status: Acute Code(s): F33.9 - Major depressive disorder, recurrent, unspecified Plan 04/15: collateral obtained from [place], [place] re meds Hx over past 2 years. call placed to jesse MACK for meds Hx and collateral. start zoloft 50 mg for now for depression and anxiety. 04/16: reinstate seroquel at HS. awaiting collateral from jesse. continue current mgmt. no change in presentation. 04/17: collateral collected from outpt prescriber jesse. he denies bipolar diagnosis, reports pt identifies as BPD. jesse also reports hypothyroidism and hypercortisolism. believes she has done well on vraylar 1.5-3 mg daily over the past year or two. pt to consider wellbutrin for augmentation. will also discuss outpt prescriber's support for continued vraylar with pt tomorrow. 04/18: convo with jesse reviewed with pt, decision made to restart yraylar at 1.5 mg daily. no change in pt's symptoms. otherwise continue prior mgmt. 04/19: no med changes, just started back on vraylar, consider increasing dose Reason for continued inpatient stay Substantial Risk for: harm to self Time Spent With Patient Time: Total time managing care of this patient today _20___ minutes.
[2023-04-19] MEDS: hydrOXYzine HCL 25 MG TABLET PO (17:48)
[2023-04-19 20:15] VITALS: BP 105/63; PULSE 78; RESP 16; TEMP 36.6; O2SAT 98
[2023-04-19] MEDS: QUEtiapine Fumarate 100 MG TABLET PO (20:48)
[2023-04-20] MEDS: Sertraline HCL 50 MG TABLET PO (08:49)
[2023-04-20] MEDS: Cariprazine HCl 1.5 MG CAPSULE PO (08:50)
[2023-04-20 09:40] VITALS: BP 117/60; PULSE 75; RESP 18; TEMP 36.6; O2SAT 98
--- NOTE | 2023-04-20 09:42 | PC.NURSE ---
Pt reports depression and Anxiety are both 10/10 denies AVH at this time. I encouraged Jose to try and go to group, she replied yes , ill try
--- NOTE | 2023-04-20 09:52 | P.PNPSI_ITS ---
Subjective Subjective Date of Service: 04/20/23 Reason For Visit: SI Subjective Notes: Conditional Voluntary Medical Problems Affecting Mental Status: No Interim History: Isolative in her room. Hypersomnic. Reporting continued severe anxiety unrelieved by vistaril. Medication Compliance: Yes Side effects from medications: No Attending Groups: No Review of Systems Acute medical concerns: No Medical Review of Systems: unchanged Mental Status Exam Mental Status Exam Patient Appearance: Unkempt Patient Orientation: Person, Place, Time and Situation Level of Consciousness: Alert Patient Behavior: Passive and Fatigued Mood Description: Anxious Affect Description: Depressed Patient Cognition Impaired: No Ability to Follow Directions: Good Speech Pattern: Clear Memory Description: Intact Hallucinations: None Delusions: Not Present Thought Process: Intact Thought Content: positive for Perseveration and positive for Suicidal Ideation (without current plan or intent) Depressive Symptoms: Increased Anxiety, Sleeping More Than Usual, Loss of Int. in Activity and Thoughts of /Suicide Judgement: Fair Diagnostics Vital Signs (24Hr): Vital Signs - 24 hr 04/19/23 20:15 04/20/23 09:40 Temperature 97.8 F 97.9 F Pulse Rate 78 75 Respiratory Rate 16 18 Blood Pressure 105/63 117/60 Pulse Oximetry 98 98 Oxygen Delivery Method Room Air Room Air BMI result Body Mass Index 24.4 Labs 04/14/23 09:26 04/16/23 08:34 Medications Medications Current Medications Acetaminophen (Acetaminophen 325 Mg Tablet) 650 mg PO Q6H PRN PRN Reason: Headache/Pain Mild Scale (1-3) Last Admin: 04/15/23 18:27 Dose: 650 mg Al Hydroxide/Mg Hydroxide (Magnesium Hydrox/Alum Hydrox 30 Ml Oral.Susp) 30 ml PO Q6H PRN PRN Reason: Heartburn/Nausea Cariprazine (Cariprazine Hcl 1.5 Mg Capsule) 1.5 mg PO DAILY [facility] Last Admin: 04/20/23 08:50 Dose: 1.5 mg Hydroxyzine HCl (Hydroxyzine Hcl 25 Mg Tablet) 25 mg PO Q6H PRN PRN Reason: Anxiety Last Admin: 04/19/23 17:48 Dose: 25 mg Magnesium Hydroxide (Milk Of Magnesia 30 Ml Oral.Susp) 30 ml PO DAILY PRN PRN Reason: Constipation Quetiapine Fumarate (Quetiapine Fumarate 100 Mg Tablet) 100 mg PO BEDTIME CHALO Last Admin: 04/19/23 20:48 Dose: 100 mg Quetiapine Fumarate (Quetiapine Fumarate 50 Mg Tablet) 50 mg PO BEDTIME PRN PRN Reason: Insomnia Sertraline HCl (Sertraline Hcl 50 Mg Tablet) 50 mg PO DAILY CHALO Last Admin: 04/20/23 08:49 Dose: 50 mg Allergies Allergies Allergy/AdvReac Type Severity Reaction Status Date / Time No Known Allergies Allergy Verified 04/14/23 08:47 Assessment & Plan Assessment & Plan (1) Major depressive disorder, recurrent episode: Status: Acute Code(s): F33.9 - Major depressive disorder, recurrent, unspecified Plan 04/15: collateral obtained from [facility], [place] re meds Hx over past 2 years. call placed to jesse MACK for meds Hx and collateral. start zoloft 50 mg for now for depression and anxiety. 04/16: reinstate seroquel at [facility]. awaiting collateral from jesse. continue current mgmt. no change in presentation. 04/17: collateral collected from outpt prescriber jesse. he denies bipolar diagnosis, reports pt identifies as BPD. jesse also reports hypothyroidism and hypercortisolism. believes she has done well on vraylar 1.5-3 mg daily over the past year or two. pt to consider wellbutrin for augmentation. will also discuss outpt prescriber's support for continued vraylar with pt tomorrow. 04/18: convo with jesse reviewed with pt, decision made to restart yraylar at 1.5 mg daily. no change in pt's symptoms. otherwise continue prior mgmt. 04/19: no med changes, just started back on vraylar, consider increasing dose 04/20: increae vraylar to 3 mg, states she tolerated this dose before Reason for continued inpatient stay Substantial Risk for: harm to self Time Spent With Patient Time: Total time managing care of this patient today _20___ minutes.
--- NOTE | 2023-04-20 10:00 | PC.NURSE ---
Patient declined pre void bladder scan. Showered. Stated he was able to void.
--- NOTE | 2023-04-20 13:12 | PC.NURSE ---
Observed Pt in the milieu playing a board game with peers.
[2023-04-20 20:15] VITALS: BP 112/68; PULSE 62; RESP 18; TEMP 36.6; O2SAT 97
[2023-04-20] MEDS: QUEtiapine Fumarate 100 MG TABLET PO (21:50)
[2023-04-21 08:00] VITALS: BP 99/69; PULSE 88; RESP 18; TEMP 36.7; O2SAT 97
[2023-04-21] MEDS: Cariprazine HCl 3 MG CAPSULE PO (09:15)
[2023-04-21] MEDS: Sertraline HCL 50 MG TABLET PO (09:16)
--- NOTE | 2023-04-21 16:59 | P.PNPSI_ITS ---
Subjective Subjective Date of Service: 04/21/23 Reason For Visit: SI Subjective Notes: Conditional Voluntary Interim History: Pt reports no change in mood. She continues to endorse intermittent suicidal ideation but denies any plan or intent to harm herself. She reports feeling failure as her mother's friend is trying to help her and she does not feel better. She reports ruminations at night and during the day. She reports feeling like I'm always in my head. Pt reminded of recent passing of her mother, and fact that that will take time. We also discussed increasing sertraline. Review of Systems Review of Systems Constitutional: No Weight loss, No Fever, No Chills, No Night Sweats, No Fatigue, No Malaise ENT/Mouth: No Hearing loss, No Ear Pain, No Nasal Congestion, No Sinus Pain, No Hoarseness, No sore throat, No Rhinorrhea, No Swallowing Difficulty Eyes: No Eye Pain, No Swelling, No Redness, No Foreign Body, No Discharge, No Vision Changes Cardiovascular: No Chest Pain, No SOB, No Dyspnea on Exertion, No Orthopnea, No Edema, No Palpitations Respiratory: No Cough, No Sputum, No Wheezing, No Smoke Exposure, No Dyspnea Gastrointestinal: No Nausea, No Vomiting, No Diarrhea, No Constipation, No Abdominal pain, No Hematochezia, No Melena Genitourinary: No irregular bleeding, No Dysuria, No Urinary Frequency, No Hematuria, No Urinary Incontinence/retention, No Urgency, No Flank Pain, No Urinary Flow Changes, No Hesitancy Musculoskeletal: No joint pain, No Myalgias, No Joint Swelling Skin: No Skin Lesions, No rash Neuro: No Weakness, No Numbness, No Paresthesias, No Loss of Consciousness, No Dizziness, No Headache Psych: No Anxiety/Panic, No Depression, +SI, No HI/AH/VH, No Social Issues, Heme/Lymph: No Bruising, No Bleeding,No Lymphadenopathy Endocrine: No Polyuria, No Polydipsia, No Temperature Intolerance Yes all other systems are reviewed and are negative Constitutional: Reports as per HPI Mental Status Exam Mental Status Exam Narrative: calm, cooperative. adequately dressed and groomed, in street clothes. cooperative. speech nml amount, decr loudness. perhaps slightly slowed. latency slightly increased. affect constricted, normo-intense, non-labile. mood no change. passive SI. no SIBI/HI/AVH expressed. Diagnostics Vital Signs (24Hr): Vital Signs - 24 hr 04/20/23 20:15 04/21/23 08:00 Temperature 97.8 F 98.1 F Pulse Rate 62 88 Respiratory Rate 18 18 Blood Pressure 112/68 99/69 Pulse Oximetry 97 97 Oxygen Delivery Method Room Air Room Air BMI result Body Mass Index 24.4 Labs 04/14/23 09:26 04/16/23 08:34 Medications Medications Current Medications Acetaminophen (Acetaminophen 325 Mg Tablet) 650 mg PO Q6H PRN PRN Reason: Headache/Pain Mild Scale (1-3) Last Admin: 04/15/23 18:27 Dose: 650 mg Al Hydroxide/Mg Hydroxide (Magnesium Hydrox/Alum Hydrox 30 Ml Oral.Susp) 30 ml PO Q6H PRN PRN Reason: Heartburn/Nausea Cariprazine (Cariprazine Hcl 3 Mg Capsule) 3 mg PO DAILY [facility] Last Admin: 04/21/23 09:15 Dose: 3 mg Hydroxyzine HCl (Hydroxyzine Hcl 50 Mg Tablet) 50 mg PO Q6H PRN PRN Reason: Anxiety Magnesium Hydroxide (Milk Of Magnesia 30 Ml Oral.Susp) 30 ml PO DAILY PRN PRN Reason: Constipation Quetiapine Fumarate (Quetiapine Fumarate 100 Mg Tablet) 100 mg PO BEDTIME [facility] Last Admin: 04/20/23 21:50 Dose: 100 mg Quetiapine Fumarate (Quetiapine Fumarate 50 Mg Tablet) 50 mg PO BEDTIME PRN PRN Reason: Insomnia Sertraline HCl (Sertraline Hcl 50 Mg Tablet) 50 mg PO DAILY [facility] Last Admin: 04/21/23 09:16 Dose: 50 mg Allergies Allergies Allergy/AdvReac Type Severity Reaction Status Date / Time No Known Allergies Allergy Verified 04/14/23 08:47 Assessment & Plan Assessment & Plan (1) Major depressive disorder, recurrent episode: Status: Acute Code(s): F33.9 - Major depressive disorder, recurrent, unspecified Plan 04/15: collateral obtained from [place] re meds Hx over past 2 years. call placed to jesse MACK for meds Hx and collateral. start zoloft 50 mg for now for depression and anxiety. 04/16: reinstate seroquel at HS. awaiting collateral from jesse. continue current mgmt. no change in presentation. 04/17: collateral collected from outpt prescriber jesse. he denies bipolar diagnosis, reports pt identifies as BPD. jesse also reports hypothyroidism and hypercortisolism. believes she has done well on vraylar 1.5-3 mg daily over the past year or two. pt to consider wellbutrin for augmentation. will also discuss outpt prescriber's support for continued vraylar with pt tomorrow. 04/18: convo with jesse reviewed with pt, decision made to restart yraylar at 1.5 mg daily. no change in pt's symptoms. otherwise continue prior mgmt. 04/19: no med changes, just started back on vraylar, consider increasing dose 04/20: increae vraylar to 3 mg, states she tolerated this dose before 04/21 increase sertraline to 100mg po daily. Reason for continued inpatient stay Substantial Risk for: inability to function Time Spent With Patient Time: Total time managing care of this patient today ____ minutes.
[2023-04-21 18:00] VITALS: BP 113/60; PULSE 76; RESP 18; TEMP 36.6; O2SAT 98
[2023-04-21] MEDS: QUEtiapine Fumarate 100 MG TABLET PO (20:45)
[2023-04-22 09:00] VITALS: BP 106/64; PULSE 68; RESP 16; TEMP 37.3; O2SAT 98
[2023-04-22] MEDS: Cariprazine HCl 3 MG CAPSULE PO (09:00)
[2023-04-22] MEDS: Sertraline HCL 100 MG TABLET PO (09:00)
--- NOTE | 2023-04-22 15:04 | HO.PSYCHPN ---
Subjective Subjective Date of Service: 04/22/23 Reason For Visit: SI Interim History: c/o racing thoughts. worrying a lot. discussed approaching limits of what we can do inpatient and need to turn focus to outpt soon. once again declines to entertain doing PHP, says she did not benefit from the last one she did. will work with SW on aftercare planning. per staff, isolative. increased anx/dep. denies SI/HI. ate 20% bfast yesterday. Mental Status Exam Mental Status Exam Narrative: calm, cooperative. adequately dressed and groomed, in street clothes. cooperative. speech nml amount, decr loudness. perhaps slightly slowed. latency slightly increased. affect constricted, normo-intense, non-labile. mood no change. passive SI. no SIBI/HI/AVH expressed. Diagnostics Vital Signs (24Hr): Vital Signs - 24 hr 04/21/23 18:00 04/22/23 09:00 Temperature 97.8 F 99.2 F Pulse Rate 76 68 Respiratory Rate 18 16 Blood Pressure 113/60 106/64 Pulse Oximetry 98 98 Oxygen Delivery Method Room Air Room Air BMI result Body Mass Index 24.4 Labs 04/14/23 09:26 04/16/23 08:34 Medications Medications Current Medications Acetaminophen (Acetaminophen 325 Mg Tablet) 650 mg PO Q6H PRN PRN Reason: Headache/Pain Mild Scale (1-3) Last Admin: 04/15/23 18:27 Dose: 650 mg Al Hydroxide/Mg Hydroxide (Magnesium Hydrox/Alum Hydrox 30 Ml Oral.Susp) 30 ml PO Q6H PRN PRN Reason: Heartburn/Nausea Cariprazine (Cariprazine Hcl 3 Mg Capsule) 3 mg PO DAILY [facility] Last Admin: 04/22/23 09:00 Dose: 3 mg Hydroxyzine HCl (Hydroxyzine Hcl 50 Mg Tablet) 50 mg PO Q6H PRN PRN Reason: Anxiety Magnesium Hydroxide (Milk Of Magnesia 30 Ml Oral.Susp) 30 ml PO DAILY PRN PRN Reason: Constipation Quetiapine Fumarate (Quetiapine Fumarate 100 Mg Tablet) 100 mg PO BEDTIME [facility] Last Admin: 04/21/23 20:45 Dose: 100 mg Quetiapine Fumarate (Quetiapine Fumarate 50 Mg Tablet) 50 mg PO BEDTIME PRN PRN Reason: Insomnia Sertraline HCl (Sertraline Hcl 100 Mg Tablet) 100 mg PO DAILY [facility] Last Admin: 04/22/23 09:00 Dose: 100 mg Allergies Allergies Allergy/AdvReac Type Severity Reaction Status Date / Time No Known Allergies Allergy Verified 04/14/23 08:47 Assessment & Plan Assessment & Plan (1) Major depressive disorder, recurrent episode: Status: Acute Code(s): F33.9 - Major depressive disorder, recurrent, unspecified Plan 04/15: collateral obtained from [facility] [place] re meds Hx over past 2 years. call placed to jesse FRANCON for meds Hx and collateral. start zoloft 50 mg for now for depression and anxiety. 04/16: reinstate seroquel at HS. awaiting collateral from jesse. continue current mgmt. no change in presentation. 04/17: collateral collected from outpt prescriber jesse. he denies bipolar diagnosis, reports pt identifies as BPD. jesse also reports hypothyroidism and hypercortisolism. believes she has done well on vraylar 1.5-3 mg daily over the past year or two. pt to consider wellbutrin for augmentation. will also discuss outpt prescriber's support for continued vraylar with pt tomorrow. 04/18: convo with jesse reviewed with pt, decision made to restart yraylar at 1.5 mg daily. no change in pt's symptoms. otherwise continue prior mgmt. 04/19: no med changes, just started back on vraylar, consider increasing dose 04/20: increae vraylar to 3 mg, states she tolerated this dose before 04/21 increase sertraline to 100mg po daily. 04/22: continue current mgmt. emphasis on dispo planning. Reason for continued inpatient stay Substantial Risk for: inability to function and rapid decompensation Time Spent With Patient Time: Total time managing care of this patient today _25___ minutes.
[2023-04-22 20:01] VITALS: BP 107/71; PULSE 74; RESP 16; TEMP 36.7; O2SAT 98
[2023-04-22] MEDS: QUEtiapine Fumarate 100 MG TABLET PO (20:43)
[2023-04-23 06:00] VITALS: BP 110/73; PULSE 70; RESP 16; TEMP 36.7; O2SAT 98
[2023-04-23] MEDS: Cariprazine HCl 3 MG CAPSULE PO (09:01)
[2023-04-23] MEDS: Sertraline HCL 100 MG TABLET PO (09:01)
--- NOTE | 2023-04-23 13:53 | P.PNPSI_ITS ---
Subjective Subjective Date of Service: 04/23/23 Reason For Visit: SI Interim History: calm, cooperative. reports ongoing daily SI, fantasizing about suiciding with a firearm. denies actual plan or intent. reports sleeping some nights and not others, but did sleep last night. would now prefer to remain in the hospital through next friday or friday; has an outpatient appointment scheduled for friday. per staff, pleasant. anxious and depressed. poor PO intake. safe. no SI/HI. DFA, MNA. 07/15 anx/dep. Mental Status Exam Mental Status Exam Narrative: calm, cooperative. adequately dressed and groomed, in street clothes. cooperative. speech nml amount, loudness. perhaps slightly slowed. latency slightly increased. affect constricted, normo-intense, non-labile. mood kind of flat, i guess. +SI with ideation to shoot herself with a firearm. no SIBI/HI/AVH expressed. Diagnostics Vital Signs (24Hr): Vital Signs - 24 hr 04/22/23 20:01 04/23/23 06:00 Temperature 98.1 F 98.0 F Pulse Rate 74 70 Respiratory Rate 16 16 Blood Pressure 107/71 110/73 Pulse Oximetry 98 98 Oxygen Delivery Method Room Air Room Air BMI result Body Mass Index 24.4 Labs 04/14/23 09:26 04/16/23 08:34 Medications Medications Current Medications Acetaminophen (Acetaminophen 325 Mg Tablet) 650 mg PO Q6H PRN PRN Reason: Headache/Pain Mild Scale (1-3) Last Admin: 04/15/23 18:27 Dose: 650 mg Al Hydroxide/Mg Hydroxide (Magnesium Hydrox/Alum Hydrox 30 Ml Oral.Susp) 30 ml PO Q6H PRN PRN Reason: Heartburn/Nausea Cariprazine (Cariprazine Hcl 3 Mg Capsule) 3 mg PO DAILY [facility] Last Admin: 04/23/23 09:01 Dose: 3 mg Hydroxyzine HCl (Hydroxyzine Hcl 50 Mg Tablet) 50 mg PO Q6H PRN PRN Reason: Anxiety Magnesium Hydroxide (Milk Of Magnesia 30 Ml Oral.Susp) 30 ml PO DAILY PRN PRN Reason: Constipation Quetiapine Fumarate (Quetiapine Fumarate 100 Mg Tablet) 100 mg PO BEDTIME [facility] Last Admin: 04/22/23 20:43 Dose: 100 mg Quetiapine Fumarate (Quetiapine Fumarate 50 Mg Tablet) 50 mg PO BEDTIME PRN PRN Reason: Insomnia Sertraline HCl (Sertraline Hcl 100 Mg Tablet) 100 mg PO DAILY [facility] Last Admin: 04/23/23 09:01 Dose: 100 mg Allergies Allergies Allergy/AdvReac Type Severity Reaction Status Date / Time No Known Allergies Allergy Verified 04/14/23 08:47 Assessment & Plan Assessment & Plan (1) Major depressive disorder, recurrent episode: Status: Acute Code(s): F33.9 - Major depressive disorder, recurrent, unspecified Plan 04/15: collateral obtained from [facility] [place], [place] re meds Hx over past 2 years. call placed to jesse [employer] for meds Hx and collateral. start zoloft 50 mg for now for depression and anxiety. 04/16: reinstate seroquel at HS. awaiting collateral from jesse. continue current mgmt. no change in presentation. 04/17: collateral collected from outpt prescriber jesse. he denies bipolar diagnosis, reports pt identifies as BPD. jesse also reports hypothyroidism and hypercortisolism. believes she has done well on vraylar 1.5-3 mg daily over the past year or two. pt to consider wellbutrin for augmentation. will also discuss outpt prescriber's support for continued vraylar with pt tomorrow. 04/18: convo with jesse reviewed with pt, decision made to restart yraylar at 1.5 mg daily. no change in pt's symptoms. otherwise continue prior mgmt. 04/19: no med changes, just started back on vraylar, consider increasing dose 04/20: increae vraylar to 3 mg, states she tolerated this dose before 04/21 increase sertraline to 100mg po daily. 04/22: continue current mgmt. emphasis on dispo planning. 04/23: acknowledging active SI with plan (wilbur). feels more time for stabilization on meds would be helpful. has an appointment for therapy next friday. planning for D/C next friday or friday morning. no change to regimen. Reason for continued inpatient stay Substantial Risk for: harm to self, inability to function and rapid decompensation Time Spent With Patient Time: Total time managing care of this patient today __25__ minutes.
[2023-04-23] MEDS: QUEtiapine Fumarate 100 MG TABLET PO (20:14)
[2023-04-23 20:19] VITALS: BP 108/71; PULSE 68; RESP 16; TEMP 36.6; O2SAT 98
[2023-04-24 07:00] VITALS: BMI 24.0
[2023-04-24] MEDS: Cariprazine HCl 3 MG CAPSULE PO (09:24)
[2023-04-24] MEDS: Sertraline HCL 100 MG TABLET PO (09:24)
[2023-04-24 10:35] VITALS: BP 93/53; PULSE 79; RESP 18; TEMP 36.8; O2SAT 97
--- NOTE | 2023-04-24 16:07 | HO.PSYCHPN ---
Subjective Subjective Date of Service: 04/24/23 Reason For Visit: SI Interim History: no change in presentation. mood and SI thoughts remain the same. discuss reasonable time scale for response to meds and goals of hospitalization. discussion had re being on both vraylar and seroquel, risk of weight gain on seroquel, potential use of other medications for insomnia. agrees to DC seroquel in favor of trazodone at HS for insomnia. per staff, pleasant. high anxiety/dep. needing lots of support to participate in groups and milieu activities. on and off sleep. attended 2 groups yesterday, not participating. Mental Status Exam Mental Status Exam Narrative: calm, cooperative. adequately dressed and groomed, in street clothes. cooperative. speech nml amount, loudness. perhaps slightly slowed. latency slightly increased. affect constricted, normo-intense, non-labile. mood kind of flat, i guess. +SI with ideation to shoot herself with a firearm. no SIBI/HI/AVH expressed. Diagnostics Vital Signs (24Hr): Vital Signs - 24 hr 04/23/23 20:19 04/24/23 10:35 Temperature 97.9 F 98.3 F Pulse Rate 68 79 Respiratory Rate 16 18 Blood Pressure 108/71 93/53 L Pulse Oximetry 98 97 Oxygen Delivery Method Room Air Room Air BMI result Body Mass Index 24.0 Labs 04/14/23 09:26 04/16/23 08:34 Medications Medications Current Medications Acetaminophen (Acetaminophen 325 Mg Tablet) 650 mg PO Q6H PRN PRN Reason: Headache/Pain Mild Scale (1-3) Last Admin: 04/15/23 18:27 Dose: 650 mg Al Hydroxide/Mg Hydroxide (Magnesium Hydrox/Alum Hydrox 30 Ml Oral.Susp) 30 ml PO Q6H PRN PRN Reason: Heartburn/Nausea Cariprazine (Cariprazine Hcl 3 Mg Capsule) 3 mg PO DAILY [facility] Last Admin: 04/24/23 09:24 Dose: 3 mg Hydroxyzine HCl (Hydroxyzine Hcl 50 Mg Tablet) 50 mg PO Q6H PRN PRN Reason: Anxiety Magnesium Hydroxide (Milk Of Magnesia 30 Ml Oral.Susp) 30 ml PO DAILY PRN PRN Reason: Constipation Quetiapine Fumarate (Quetiapine Fumarate 50 Mg Tablet) 50 mg PO BEDTIME PRN PRN Reason: Insomnia Quetiapine Fumarate (Quetiapine Fumarate 50 Mg Tablet) 50 mg PO BEDTIME PRN PRN Reason: insomnia Sertraline HCl (Sertraline Hcl 100 Mg Tablet) 100 mg PO DAILY [facility] Last Admin: 04/24/23 09:24 Dose: 100 mg Trazodone HCl (Trazodone Hcl 50 Mg Tablet) 50 mg PO BEDTIME [facility] Trazodone HCl (Trazodone Hcl 50 Mg Tablet) 50 mg PO BEDTIME PRN PRN Reason: Insomnia Allergies Allergies Allergy/AdvReac Type Severity Reaction Status Date / Time No Known Allergies Allergy Verified 04/14/23 08:47 Assessment & Plan Assessment & Plan (1) Major depressive disorder, recurrent episode: Status: Acute Code(s): F33.9 - Major depressive disorder, recurrent, unspecified Plan 04/15: collateral obtained from [place], [place] re meds Hx over past 2 years. call placed to jesse MACK for meds Hx and collateral. start zoloft 50 mg for now for depression and anxiety. 04/16: reinstate seroquel at . awaiting collateral from jesse. continue current mgmt. no change in presentation. 04/17: collateral collected from outpt prescriber jesse. he denies bipolar diagnosis, reports pt identifies as BPD. jesse also reports hypothyroidism and hypercortisolism. believes she has done well on vraylar 1.5-3 mg daily over the past year or two. pt to consider wellbutrin for augmentation. will also discuss outpt prescriber's support for continued vraylar with pt tomorrow. 04/18: convo with jesse reviewed with pt, decision made to restart yraylar at 1.5 mg daily. no change in pt's symptoms. otherwise continue prior mgmt. 04/19: no med changes, just started back on vraylar, consider increasing dose 04/20: increae vraylar to 3 mg, states she tolerated this dose before 04/21 increase sertraline to 100mg po daily. 04/22: continue current mgmt. emphasis on dispo planning. 04/23: acknowledging active SI with plan (gun). feels more time for stabilization on meds would be helpful. has an appointment for therapy next friday. planning for D/C next friday or friday. no change to regimen. 04/24: DC seroquel, start trazodone for insomnia. no change in presentation, mood, or SI. continue current mgmt otherwise. Reason for continued inpatient stay Substantial Risk for: harm to self Time Spent With Patient Time: Total time managing care of this patient today _25___ minutes.
[2023-04-24] MEDS: hydrOXYzine HCL 50 MG TABLET PO (18:29)
[2023-04-24 20:20] VITALS: BP 119/84; PULSE 82; TEMP 36.6; O2SAT 98
[2023-04-24] MEDS: traZODone HCL 50 MG TABLET PO (21:01)
[2023-04-25 09:00] VITALS: BP 131/56; PULSE 101; TEMP 36.7; O2SAT 97
[2023-04-25] MEDS: Cariprazine HCl 3 MG CAPSULE PO (10:30)
[2023-04-25] MEDS: Sertraline HCL 100 MG TABLET PO (10:30)
--- NOTE | 2023-04-25 14:12 | P.PNPSI_ITS ---
Subjective Subjective Date of Service: 04/25/23 Reason For Visit: SI Interim History: pt reporting she is afraid of roommate, sleeping in sensory room. thoughts really bad still, +SI with thought of shooting self. pt confidently saying she feels vraylar has not been helpful and wants to get off of it. Dx of depressive disorder discussed, as well as usual augmentation strategies. pt agrees to taper and DC vraylar and start trial of wellbutrin. per staff, no change in presentation. eating OK, sleep poor. dep 10. no AH/VH. racing thoughts at NOC. slept in sensory room. Mental Status Exam Mental Status Exam Narrative: calm, cooperative. adequately dressed and groomed, in street clothes. cooperative. speech nml amount, loudness. perhaps slightly slowed. latency slightly increased. affect constricted, normo-intense, non-labile. mood the same +SI with ideation to shoot herself with a firearm. no SIBI/HI/AVH expressed. Diagnostics Vital Signs (24Hr): Vital Signs - 24 hr 04/24/23 20:20 04/25/23 09:00 Temperature 97.8 F 98.1 F Pulse Rate 82 101 H Blood Pressure 119/84 131/56 L Pulse Oximetry 98 97 Oxygen Delivery Method Room Air Room Air BMI result Body Mass Index 24.0 Labs 04/14/23 09:26 04/16/23 08:34 Medications Medications Current Medications Acetaminophen (Acetaminophen 325 Mg Tablet) 650 mg PO Q6H PRN PRN Reason: Headache/Pain Mild Scale (1-3) Last Admin: 04/15/23 18:27 Dose: 650 mg Al Hydroxide/Mg Hydroxide (Magnesium Hydrox/Alum Hydrox 30 Ml Oral.Susp) 30 ml PO Q6H PRN PRN Reason: Heartburn/Nausea Cariprazine (Cariprazine Hcl 1.5 Mg Capsule) 1.5 mg PO DAILY [facility] Stop: 04/27/23 09:01 Hydroxyzine HCl (Hydroxyzine Hcl 50 Mg Tablet) 50 mg PO Q6H PRN PRN Reason: Anxiety Last Admin: 04/24/23 18:29 Dose: 50 mg Magnesium Hydroxide (Milk Of Magnesia 30 Ml Oral.Susp) 30 ml PO DAILY PRN PRN Reason: Constipation Quetiapine Fumarate (Quetiapine Fumarate 50 Mg Tablet) 50 mg PO BEDTIME PRN PRN Reason: Insomnia Quetiapine Fumarate (Quetiapine Fumarate 50 Mg Tablet) 50 mg PO BEDTIME PRN PRN Reason: insomnia Sertraline HCl (Sertraline Hcl 100 Mg Tablet) 100 mg PO DAILY [facility] Last Admin: 04/25/23 10:30 Dose: 100 mg Trazodone HCl (Trazodone Hcl 50 Mg Tablet) 50 mg PO BEDTIME PRN PRN Reason: Insomnia Trazodone HCl (Trazodone Hcl 100 Mg Tablet) 100 mg PO BEDTIME [facility] Allergies Allergies Allergy/AdvReac Type Severity Reaction Status Date / Time No Known Allergies Allergy Verified 04/14/23 08:47 Assessment & Plan Assessment & Plan (1) Major depressive disorder, recurrent episode: Status: Acute Code(s): F33.9 - Major depressive disorder, recurrent, unspecified Plan 04/15: collateral obtained from [place], [place] re meds Hx over past 2 years. call placed to jesse [employer] for meds Hx and collateral. start zoloft 50 mg for now for depression and anxiety. 04/16: reinstate seroquel at . awaiting collateral from jesse. continue current mgmt. no change in presentation. 04/17: collateral collected from outpt prescriber jesse. he denies bipolar diagnosis, reports pt identifies as BPD. jesse also reports hypothyroidism and hypercortisolism. believes she has done well on vraylar 1.5-3 mg daily over the past year or two. pt to consider wellbutrin for augmentation. will also discuss outpt prescriber's support for continued vraylar with pt tomorrow. 04/18: convo with jesse reviewed with pt, decision made to restart yraylar at 1.5 mg daily. no change in pt's symptoms. otherwise continue prior mgmt. 04/19: no med changes, just started back on vraylar, consider increasing dose 04/20: increae vraylar to 3 mg, states she tolerated this dose before 04/21 increase sertraline to 100mg po daily. 04/22: continue current mgmt. emphasis on dispo planning. 04/23: acknowledging active SI with plan (gun). feels more time for stabilization on meds would be helpful. has an appointment for therapy next friday. planning for D/C next friday or friday morning. no change to regimen. 04/24: DC seroquel, start trazodone for insomnia. no change in presentation, mood, or SI. continue current mgmt otherwise. 04/25: poor sleep, increase trazodone to 100 mg QHS. wants to DC vraylar, taper off over next 2 days. agrees to wellbutrin augmentation, start tomorrow at 150 mg daily. Patient educated on: diagnosis and medication risk/benefits Reason for continued inpatient stay Substantial Risk for: harm to self, inability to function and rapid decompensation Time Spent With Patient Time: Total time managing care of this patient today __25__ minutes.
[2023-04-25 18:00] VITALS: BP 109/62; PULSE 64; RESP 18; TEMP 36.4; O2SAT 97
[2023-04-25] MEDS: traZODone HCL 100 MG TABLET PO (20:53)
[2023-04-26 09:00] VITALS: BP 90/61; PULSE 93; RESP 16; TEMP 37.1; O2SAT 98
[2023-04-26] MEDS: Sertraline HCL 100 MG TABLET PO (09:14)
[2023-04-26] MEDS: buPROPion HCl XL 150 MG TAB.ER.24H PO (09:14)
[2023-04-26] MEDS: Cariprazine HCl 1.5 MG CAPSULE PO (09:14)
[2023-04-26 13:55] LABS: Appearance Urine Clear; Color Urine Yellow; Glucose Urine UA Negative (Negative); Leukocyte Esterase Urine Small (1+) (Negative); Nitrite Urine Negative (Negative); PH 6.5 (5.0-9.0); Specific Gravity - Urine <= 1.005 (1.005-1.025); UMIC TRIGGER UACC YES; Urine Blood Negative (Negative); Urine Ketones Negative (Negative); Urine Protein Negative (Neg-Trace)
[2023-04-26 14:13] LABS: Bacteria Urine Trace (None Seen); Hyaline Casts Urine 0-2 /LPF (0-2); UACC Culture Trigger YES; WBC Urine 0-5 /HPF (0-5)
--- NOTE | 2023-04-26 14:40 | P.PNPSI_ITS ---
Subjective Subjective Date of Service: 04/26/23 Reason For Visit: SI Interim History: pt reporting she is afraid of roommate. Continues with SI. No intent while inpatient. Wellbutrin is tolerated today. Denies side effects. Spent majority of day in sensory room. Continues anxious and helpless. Had dysuria. UA minimal hematuria and small Leukocyte esterase. eating OK, sleep poor. dep 10. no AH/VH. racing thoughts at NOC. slept in sensory room. Medication Compliance: Yes Side effects from medications: No Review of Systems Review of Systems Constitutional: No Weight loss, No Fever, No Chills, No Night Sweats, No Fatigue, No Malaise ENT/Mouth: No Hearing loss, No Ear Pain, No Nasal Congestion, No Sinus Pain, No Hoarseness, No sore throat, No Rhinorrhea, No Swallowing Difficulty Eyes: No Eye Pain, No Swelling, No Redness, No Foreign Body, No Discharge, No Vision Changes Cardiovascular: No Chest Pain, No SOB, No Dyspnea on Exertion, No Orthopnea, No Edema, No Palpitations Respiratory: No Cough, No Sputum, No Wheezing, No Smoke Exposure, No Dyspnea Gastrointestinal: No Nausea, No Vomiting, No Diarrhea, No Constipation, No Abdominal pain, No Hematochezia, No Melena Genitourinary: No irregular bleeding, No Dysuria, No Urinary Frequency, No Hematuria, No Urinary Incontinence/retention, No Urgency, No Flank Pain, No Urinary Flow Changes, No Hesitancy Musculoskeletal: No joint pain, No Myalgias, No Joint Swelling Skin: No Skin Lesions, No rash Neuro: No Weakness, No Numbness, No Paresthesias, No Loss of Consciousness, No Dizziness, No Headache Psych: No Anxiety/Panic, No Depression, +SI, No HI/AH/VH, No Social Issues, Heme/Lymph: No Bruising, No Bleeding,No Lymphadenopathy Endocrine: No Polyuria, No Polydipsia, No Temperature Intolerance Yes all other systems are reviewed and are negative Constitutional: Reports as per HPI Mental Status Exam Mental Status Exam Narrative: calm, cooperative. adequately dressed and groomed, in street clothes. cooperative. speech nml amount, loudness. perhaps slightly slowed. latency slightly increased. affect constricted, normo-intense, non-labile. mood the same +SI with ideation to shoot herself with a firearm. no SIBI/HI/AVH expressed. Patient Appearance: Unkempt Patient Orientation: Person, Place, Time and Situation Level of Consciousness: Alert Patient Behavior: Passive and Fatigued Mood Description: Anxious Affect Description: Depressed Patient Cognition Impaired: No Ability to Follow Directions: Good Speech Pattern: Clear Memory Description: Intact Diagnostics Vital Signs (24Hr): Vital Signs - 24 hr 04/25/23 18:00 04/26/23 09:00 Temperature 97.6 F 98.7 F Pulse Rate 64 93 Respiratory Rate 18 16 Blood Pressure 109/62 90/61 Pulse Oximetry 97 98 Oxygen Delivery Method Room Air Room Air BMI result Body Mass Index 24.0 Labs 04/14/23 09:26 04/16/23 08:34 Labs: Laboratory Results - last 48 hr 04/26/23 13:36 Urine Color Yellow Urine Appearance Clear Urine pH 6.5 Ur Specific [place] <= 1.005 Urine Protein Negative Urine Glucose (UA) Negative Urine Ketones Negative Urine Blood Negative Urine Nitrite Negative Ur Leukocyte Esterase Small (1+) H Urine RBC 3-5 H Urine WBC 0-5 Ur Squamous Epith Cells 6-10 Urine Bacteria Trace Hyaline Casts 0-2 Medications Medications Current Medications Acetaminophen (Acetaminophen 325 Mg Tablet) 650 mg PO Q6H PRN PRN Reason: Headache/Pain Mild Scale (1-3) Last Admin: 04/15/23 18:27 Dose: 650 mg Al Hydroxide/Mg Hydroxide (Magnesium Hydrox/Alum Hydrox 30 Ml Oral.Susp) 30 ml PO Q6H PRN PRN Reason: Heartburn/Nausea Bupropion HCl (Bupropion Hcl Xl 150 Mg Tab.Er.24h) 150 mg PO DAILY [facility] Last Admin: 04/26/23 09:14 Dose: 150 mg Cariprazine (Cariprazine Hcl 1.5 Mg Capsule) 1.5 mg PO DAILY [facility] Stop: 04/27/23 09:01 Last Admin: 04/26/23 09:14 Dose: 1.5 mg Hydroxyzine HCl (Hydroxyzine Hcl 50 Mg Tablet) 50 mg PO Q6H PRN PRN Reason: Anxiety Last Admin: 04/24/23 18:29 Dose: 50 mg Magnesium Hydroxide (Milk Of Magnesia 30 Ml Oral.Susp) 30 ml PO DAILY PRN PRN Reason: Constipation Melatonin (Melatonin 3 Mg Tablet) 6 mg PO BEDTIME [facility] Quetiapine Fumarate (Quetiapine Fumarate 100 Mg Tablet) 100 mg PO BEDTIME PRN PRN Reason: insomnia Sertraline HCl (Sertraline Hcl 100 Mg Tablet) 100 mg PO DAILY [facility] Last Admin: 04/26/23 09:14 Dose: 100 mg Trazodone HCl (Trazodone Hcl 50 Mg Tablet) 50 mg PO BEDTIME PRN PRN Reason: Insomnia Trazodone HCl (Trazodone Hcl 100 Mg Tablet) 100 mg PO BEDTIME [facility] Last Admin: 04/25/23 20:53 Dose: 100 mg Allergies Allergies Allergy/AdvReac Type Severity Reaction Status Date / Time No Known Allergies Allergy Verified 04/14/23 08:47 Assessment & Plan Assessment & Plan (1) Major depressive disorder, recurrent episode: Status: Acute Code(s): F33.9 - Major depressive disorder, recurrent, unspecified Plan 04/15: collateral obtained from [place] re meds Hx over past 2 years. call placed to jesse [employer] for meds Hx and collateral. start zoloft 50 mg for now for depression and anxiety. 04/16: reinstate seroquel at . awaiting collateral from jesse. continue current mgmt. no change in presentation. 04/17: collateral collected from outpt prescriber jesse. he denies bipolar diagnosis, reports pt identifies as BPD. jesse also reports hypothyroidism and hypercortisolism. believes she has done well on vraylar 1.5-3 mg daily over the past year or two. pt to consider wellbutrin for augmentation. will also discuss outpt prescriber's support for continued vraylar with pt tomorrow. 04/18: convo with jesse reviewed with pt, decision made to restart yraylar at 1.5 mg daily. no change in pt's symptoms. otherwise continue prior mgmt. 04/19: no med changes, just started back on vraylar, consider increasing dose 04/20: increae vraylar to 3 mg, states she tolerated this dose before 04/21 increase sertraline to 100mg po daily. 04/22: continue current mgmt. emphasis on dispo planning. 04/23: acknowledging active SI with plan (gun). feels more time for stabil ization on meds would be helpful. has an appointment for therapy next friday. planning for D/C next friday or friday morning. no change to regimen. 04/24: DC seroquel, start trazodone for insomnia. no change in presentation, mood, or SI. continue current mgmt otherwise. 04/25: poor sleep, increase trazodone to 100 mg QHS. wants to DC vraylar, taper off over next 2 days. agrees to wellbutrin augmentation, start tomorrow at 150 mg daily. 04/26: Increase PRN Seroquel to 100 mg. Add melatonin 6 mg HS. Reason for continued inpatient stay Substantial Risk for: harm to self, inability to function and rapid decompensation Time Spent With Patient Time: Total time managing care of this patient today ____ minutes.
--- NOTE | 2023-04-26 18:36 | PC.NURSE ---
PT APPROACHED THIS NURSE TO INFORM HER THAT HER NAILBEDS ARE PURPLE. SHE DENIED SOB , BREATHING CONCERNS, AND CHEST PAIN. O2 100%. CASEY MCELROY MD WAS NOTIFIED OF THIS CHANGE, VIA [facility]. PT INSTRUCTED TO ALERT STAFF TO ANY ADDITIONAL CHANGES SHE MAY NOTICE. PT STATED UNDERSTANDING.
[2023-04-26 20:10] VITALS: BP 110/79; PULSE 98; RESP 18; TEMP 36.7; O2SAT 98
[2023-04-26] MEDS: traZODone HCL 100 MG TABLET PO (21:44)
[2023-04-26] MEDS: Melatonin 3 MG TABLET 6 MG PO (21:44)
[2023-04-27 09:00] VITALS: BP 101/64; PULSE 104; RESP 16; TEMP 36.9; O2SAT 97
[2023-04-27] MEDS: Sertraline HCL 100 MG TABLET PO (09:08)
[2023-04-27] MEDS: buPROPion HCl XL 150 MG TAB.ER.24H PO (09:08)
[2023-04-27] MEDS: Cariprazine HCl 1.5 MG CAPSULE PO (09:08)
--- NOTE | 2023-04-27 10:57 | P.PNPSI_ITS ---
Subjective Subjective Date of Service: 04/27/23 Reason For Visit: SI Interim History: Patient continues to endorse depression. Increase in Seroquel didn't help sleep. Patient reports depression 05/15. She continues to have SI. Hopeless about her current situation. She will be returning to her mother's friend's home upon discharge. Discussed home situation. Strained relationship with father after mother's . Her twin brother also has a difficult time with father. Wellbutrin is tolerated today. Denies side effects. Spent majority of day in sensory room. Continues anxious and helpless. Dysuria resolved. Complained to RN about purple fingers . She denies other symptoms including fever, rashes, joint pains. Wonders if it is the cold on the unit. No AH/VH. racing thoughts at NOC. slept in sensory room. Review of Systems Review of Systems Constitutional: No Weight loss, No Fever, No Chills, No Night Sweats, No Fatigue, No Malaise ENT/Mouth: No Hearing loss, No Ear Pain, No Nasal Congestion, No Sinus Pain, No Hoarseness, No sore throat, No Rhinorrhea, No Swallowing Difficulty Eyes: No Eye Pain, No Swelling, No Redness, No Foreign Body, No Discharge, No Vision Changes Cardiovascular: No Chest Pain, No SOB, No Dyspnea on Exertion, No Orthopnea, No Edema, No Palpitations Respiratory: No Cough, No Sputum, No Wheezing, No Smoke Exposure, No Dyspnea Gastrointestinal: No Nausea, No Vomiting, No Diarrhea, No Constipation, No Abdominal pain, No Hematochezia, No Melena Genitourinary: No irregular bleeding, No Dysuria, No Urinary Frequency, No Hematuria, No Urinary Incontinence/retention, No Urgency, No Flank Pain, No Urinary Flow Changes, No Hesitancy Musculoskeletal: No joint pain, No Myalgias, No Joint Swelling Skin: No Skin Lesions, No rash Neuro: No Weakness, No Numbness, No Paresthesias, No Loss of Consciousness, No Dizziness, No Headache Psych: No Anxiety/Panic, No Depression, +SI, No HI/AH/VH, No Social Issues, Heme/Lymph: No Bruising, No Bleeding,No Lymphadenopathy Endocrine: No Polyuria, No Polydipsia, No Temperature Intolerance Yes all other systems are reviewed and are negative Constitutional: Reports as per HPI Mental Status Exam Mental Status Exam Narrative: calm, cooperative. adequately dressed and groomed, in street clothes. cooperative. speech nml amount, loudness. perhaps slightly slowed. latency slightly increased. affect constricted, normo-intense, non-labile. mood the same +SI with ideation to shoot herself with a firearm. no SIBI/HI/AVH expressed. Patient Appearance: Unkempt Patient Orientation: Person, Place, Time and Situation Level of Consciousness: Alert Patient Behavior: Passive and Fatigued Mood Description: Anxious Affect Description: Depressed Patient Cognition Impaired: No Ability to Follow Directions: Good Speech Pattern: Clear Memory Description: Intact Diagnostics Vital Signs (24Hr): Vital Signs - 24 hr 04/26/23 20:10 Temperature 98.1 F Pulse Rate 98 Respiratory Rate 18 Blood Pressure 110/79 Pulse Oximetry 98 Oxygen Delivery Method Room Air BMI result Body Mass Index 24.0 Labs 04/14/23 09:26 04/16/23 08:34 Labs: Laboratory Results - last 48 hr 04/26/23 13:36 Urine Color Yellow Urine Appearance Clear Urine pH 6.5 Ur Specific [place] <= 1.005 Urine Protein Negative Urine Glucose (UA) Negative Urine Ketones Negative Urine Blood Negative Urine Nitrite Negative Ur Leukocyte Esterase Small (1+) H Urine RBC 3-5 H Urine WBC 0-5 Ur Squamous Epith Cells 6-10 Urine Bacteria Trace Hyaline Casts 0-2 Medications Medications Current Medications Acetaminophen (Acetaminophen 325 Mg Tablet) 650 mg PO Q6H PRN PRN Reason: Headache/Pain Mild Scale (1-3) Last Admin: 04/15/23 18:27 Dose: 650 mg Al Hydroxide/Mg Hydroxide (Magnesium Hydrox/Alum Hydrox 30 Ml Oral.Susp) 30 ml PO Q6H PRN PRN Reason: Heartburn/Nausea Bupropion HCl (Bupropion Hcl Xl 150 Mg Tab.Er.24h) 150 mg PO DAILY [facility] Last Admin: 04/27/23 09:08 Dose: 150 mg Hydroxyzine HCl (Hydroxyzine Hcl 50 Mg Tablet) 50 mg PO Q6H PRN PRN Reason: Anxiety Last Admin: 04/24/23 18:29 Dose: 50 mg Magnesium Hydroxide (Milk Of Magnesia 30 Ml Oral.Susp) 30 ml PO DAILY PRN PRN Reason: Constipation Melatonin (Melatonin 3 Mg Tablet) 6 mg PO BEDTIME [facility] Last Admin: 04/26/23 21:44 Dose: 6 mg Quetiapine Fumarate (Quetiapine Fumarate 100 Mg Tablet) 100 mg PO BEDTIME PRN PRN Reason: insomnia Sertraline HCl (Sertraline Hcl 100 Mg Tablet) 100 mg PO DAILY [facility] Last Admin: 04/27/23 09:08 Dose: 100 mg Trazodone HCl (Trazodone Hcl 50 Mg Tablet) 50 mg PO BEDTIME PRN PRN Reason: Insomnia Trazodone HCl (Trazodone Hcl 100 Mg Tablet) 100 mg PO BEDTIME [facility] Last Admin: 04/26/23 21:44 Dose: 100 mg Allergies Allergies Allergy/AdvReac Type Severity Reaction Status Date / Time No Known Allergies Allergy Verified 04/14/23 08:47 Assessment & Plan Assessment & Plan (1) Major depressive disorder, recurrent episode: Status: Acute Code(s): F33.9 - Major depressive disorder, recurrent, unspecified Plan 04/15: collateral obtained from [facility], [place] re meds Hx over past 2 years. call placed to jesse MACK for meds Hx and collateral. start zoloft 50 mg for now for depression and anxiety. 04/16: reinstate seroquel at . awaiting collateral from jesse. continue current mgmt. no change in presentation. 04/17: collateral collected from outpt prescriber jesse. he denies bipolar diagnosis, reports pt identifies as BPD. jesse also reports hypothyroidism and hypercortisolism. believes she has done well on vraylar 1.5-3 mg daily over the past year or two. pt to consider wellbutrin for augmentation. will also discuss outpt prescriber's support for continued vraylar with pt tomorrow. 04/18: convo with jesse reviewed with pt, decision made to restart yraylar at 1.5 mg daily. no change in pt's symptoms. otherwise continue prior mgmt. 04/19: no med changes, just started back on vraylar, consider increasing dose 04/20: increae vraylar to 3 mg, states she tolerated this dose before 04/21 increase sertraline to 100mg po daily. 04/22: continue current mgmt. emphasis on dispo planning. 04/23: acknowledging active SI with plan (gun). feels more time for stabilization on meds would be helpful. has an appointment for therapy next friday. planning for D/C next friday or friday morning. no change to regimen. 04/24: DC seroquel, start trazodone for insomnia. no change in presentation, mood, or SI. continue current mgmt otherwise. 04/25: poor sleep, increase trazodone to 100 mg QHS. wants to DC vraylar, taper off over next 2 days. agrees to wellbutrin augmentation, start tomorrow at 150 mg daily. 04/26: Increase PRN Seroquel to 100 mg. Add melatonin 6 mg HS. 04/27: Add Doxepine 25 mg HS. DC scheduled Trazodone. Reason for continued inpatient stay Substantial Risk for: harm to self, inability to function and rapid decompensation Time Spent With Patient Time: Total time managing care of this patient today ____ minutes.
[2023-04-27 21:13] VITALS: BP 122/75; PULSE 99; RESP 16; TEMP 36.8; O2SAT 99
[2023-04-27] MEDS: Melatonin 3 MG TABLET 6 MG PO (21:21)
[2023-04-27] MEDS: Doxepin HCl 25 MG CAPSULE PO (21:21)
[2023-04-28] MEDS: buPROPion HCl XL 150 MG TAB.ER.24H PO (08:25)
[2023-04-28] MEDS: Sertraline HCL 100 MG TABLET PO (08:25)
[2023-04-28 08:33] VITALS: BP 117/71; PULSE 86; RESP 18; TEMP 36.8; O2SAT 97
--- NOTE | 2023-04-28 11:01 | P.DS_ITS ---
DS: Providers Provider Date of Service: 04/28/23 Date of admission: 04/15/23 09:07 Primary care physician: Unknown Physician DS: Diagnosis Discharge Diagnosis (1) Major depressive disorder, recurrent episode: Status: Acute DS: Medications Discharge Medications Home Medications: Previous Rx's Medication Instructions Recorded bupropion HCl 150 mg 24 hr tablet, 150 mg PO DAILY 30 days #30 tabs 04/28/23 extended release hydroxyzine HCl 50 mg tablet 50 mg PO Q6H PRN Anxiety 30 days 04/28/23 #30 tabs sertraline 100 mg tablet 100 mg PO DAILY 30 days #30 tabs 04/28/23 trazodone 50 mg tablet 150 mg PO BEDTIME 30 days #90 tabs 04/28/23 Mental Status Exam Mental Status Exam Narrative: calm, cooperative. adequately dressed and groomed, in street clothes. cooperative. speech nml amount, loudness. perhaps slightly slowed. latency slightly increased. affect constricted, normo-intense, non-labile. mood flat passive SI. no SIBI/HI/AVH expressed. Data Data Completed and Pending Completed studies during hospitalization [Text1]: 04/26/23 13:36 Urine Color Yellow Urine Appearance Clear Urine pH 6.5 Ur Specific [place] <= 1.005 Urine Protein Negative Urine Glucose (UA) Negative Urine Ketones Negative Urine Blood Negative Urine Nitrite Negative Ur Leukocyte Esterase Small (1+) H Urine RBC 3-5 H Urine WBC 0-5 Ur Squamous Epith Cells 6-10 Urine Bacteria Trace Hyaline Casts 0-2 04/26/23 Unknown Urine clean catch - Clean Catch Midstream Urine Culture - Final DS: Summary Hospital Course Hospital Course: per 04/15 admission note: per CARE team keyona eastman presented to [facility] ED with friend, c/o SI and seeking admission.? she reported that her mother had been ill with cancer for the past several years and about 3 weeks ago.? since her mother's passing, she has been having daily SI; she struggles with chronic SI, but recently it has been more frequent and intense.? she reports hopelessness, insomnia, anorexia with 4 lb weight loss, poor attention to ADLs.? per collateral from pt's friend alon, pt has been struggling the past 6 years since her mother was diagnosed with cancer but has become increasingly depressed and suicidal since her mother's several weeks ago. on interview with psych MD on unit, pt's narrative is consistent with the information above.? she reports mst of her med trials happened when she was in elementary school.? she cannot recal the meds or doses, but it is her perception that meds have never been terribly helpful for her.? she endorses insomnia, anergia, amotivation, hopelessness, rumination, poor concentration, PMR, and SI.? she reports her energy level is normal. ? she reports as her target symptoms SI, anxiety, and rumination/depression, in that order.? R/B of medications discussed, with focus on SSRI, and pt agrees to trial.? MD contacted pharmacy where pt gets her meds in [place] and left message for her outpt med prescriber for collateral in understanding medication and diagnostic Hx. Past Psychiatric History: hosps:? 1 prior, october of 2021 in [place], [place]; PHP after SA:? denies SIB: denies outpt: therapy - weekly with same therapist for the past 3+ years prescriber - MARTINA martell [phone], for longer than with therapist ? reports h/o ADHD and depression diagnoses from childhood. describes most of her med trials as having happened when she was around 7 yo. ? per collateral from [place], [place], pt has been prescribed the following m edications in the past 2 years:? vraylar 3 mg daily, seroquel 100-150 mg QHS, hydroxyzine PRN anxiety, topiramate 50 BID (late 2020), and lithium (09/26). Medical Evaluation Reviewed: Yes [facility] Family History: brother - OCD/anxiety/depression sister - ODD Social History: single, never , no children.? living with a friend of her family's presently, having moved out of her family home after the of her mother.? she feels her father has made it abundantly clear he does not want anyone there with him, so she and her sister moved out.? ?entering senior year in college - [employer] in [place], [place].? not employed. Substance History: pt denies the use of tobacco, alcohol, cannabis, or any other substances of abuse or recreational drugs. Trauma History: denies Precis: 04/15:? collateral obtained from [place] re meds Hx over past 2 years.? call placed to jesse [employer] for meds Hx and collateral.? start zoloft 50 mg for now for depression and anxiety. 04/16:? reinstate seroquel at [facility].? awaiting collateral from jesse.? continue current mgmt.? no change in presentation. 04/17:? collateral collected from outpt prescriber jesse.? he denies bipolar diagnosis, reports pt identifies as BPD.? jesse also reports hypothyroidism and hypercortisolism.? believes she has done well on vraylar 1.5-3 mg daily over the past year or two.? pt to consider wellbutrin for augmentation.? will also discuss outpt prescriber's support for continued vraylar with pt tomorrow. 04/18:? convo with jesse reviewed with pt, decision made to restart yraylar at 1.5 mg daily.? no change in pt's symptoms.? otherwise continue prior mgmt. 04/19: no med changes, just started back on vraylar, consider increasing dose 04/20: increae vraylar to 3 mg, states she tolerated this dose before 04/21 increase sertraline to 100mg po daily. 04/22:? continue current mgmt.? emphasis on dispo planning. 04/23:? acknowledging active SI with plan ([place]).? feels more time for stab ilization on meds would be helpful.? has an appointment for therapy next friday.? planning for D/C next friday or friday morning.? no change to regimen. 04/24:? DC seroquel, start trazodone for insomnia.? no change in presentation, mood, or SI.? continue current mgmt otherwise. 04/25:? poor sleep, increase trazodone to 100 mg QHS.? wants to DC vraylar, taper off over next 2 days.? agrees to wellbutrin augmentation, start tomorrow at 150 mg daily. 04/26: Increase PRN Seroquel to 100 mg. Add melatonin 6 mg HS. 04/27: Add Doxepin 25 mg HS. DC scheduled Trazodone. 04/28: poor sleep last night. after discussion with pt agree to DC doxepin and return to trazodone, at escalated dose of 150 mg. pt will continue to work with outpt provider on psychopharm for sleep. reports flat mood and passive SI, as per her baseline. discharged to care of family friend as per her request today. Time Spent with Patient Time attestation: Total time managing care of this patient today ____ minutes. Time spent: Greater than 30 minutes Discharge Plan Discharge Anticipated Discharge Date/Time: 04/28/23 16:30 Patient Disposition: Home, Self-Care Discharge Diagnosis: Major Depressive Disorder, Recurrent Referrals: Josie Johnston [Other] - 04/29/23 4:00 pm (Telehealth appointment April 29 at 4pm) Estevan Martell (Psychiatry) [Other] - 1 Week (Your prescriber has been made aware that you are being discharged from the unit. Please follow up with him regarding a follow up appointment for medication management ) Discharge Medications: New trazodone 50 mg Tablet 150 mg PO BEDTIME 30 Days Qty: 90 0RF sertraline 100 mg Tablet 100 mg PO DAILY 30 Days Qty: 30 0RF hydroxyzine HCl 50 mg Tablet 50 mg PO Q6H PRN (Reason: Anxiety) 30 Days Qty: 30 0RF bupropion HCl 150 mg Tablet Extended Release 24 Hr 150 mg PO DAILY 30 Days Qty: 30 0RF Discontinued Vraylar 3 mg Capsule 3 mg PO DAILY metformin 500 mg PO DAILY quetiapine 100 mg PO BEDTIME Discharge Orders: Discharge Order (Routine); Ordered 04/28/23 Ordered By: John Swartz Diet: Advance to usual diet Activity on Discharge: As tolerated Stand Alone Forms: Patient Portal Discharge page, Community Support Care Plan Goals: remain safe and stable in the outpatient treatment setting Health Concerns: none Plan of Treatment: take medications as prescribed, attend appointments as scheduled Assessment: not at imminent risk of harm to self or others
== END 2023-04-28 16:30 | disposition home or self-care (01) | DRG 885 ==
LOC: HO.ED 04-15 08:58 → HO.PADLT16 04-15 09:11
PROVIDERS: Emergency Medicine; Psychiatry & Neurology Psychiatry; Admitting Provider Psychiatry & Neurology Psychiatry; Emergency Provider Emergency Medicine Emergency Medical Services; Visit Provider Psychiatry & Neurology Psychiatry
DX: F33.9 Major depressive disorder, recurrent, unspecified (principal); R45.851 Suicidal ideations; Z20.822 Contact with and (suspected) exposure to COVID-19; Z79.899 Other long term (current) drug therapy
CPT/HCPCS: 36415; 80048; 80053; 80061; 80307; 81001; 81003; 81025; 82607; 82746; 83036; 84439; 84443; 85025; 87086; 87635; 93005; 99285; S9485

== ENCOUNTER → 2023-04-14 18:25 | Outpatient (BNV) | payer OTHER, SELFPAY | PROVIDERS: Admitting Provider Psychiatry & Neurology Psychiatry; Emergency Provider Emergency Medicine Emergency Medical Services; Visit Provider Internal Medicine Cardiovascular Disease | DX: R45.851 Suicidal ideations (principal) | CPT/HCPCS: 93010 ==

== ENCOUNTER → 2023-04-15 09:07 | Outpatient (BNV) | payer OTHER, SELFPAY | PROVIDERS: Admitting Provider Psychiatry & Neurology Psychiatry; Emergency Provider Emergency Medicine Emergency Medical Services; Visit Provider Psychiatry & Neurology Psychiatry | DX: F33.2 Major depressive disorder, recurrent severe without psychotic features (principal) | CPT/HCPCS: 99223; 99231; 99232; 99239 ==